=== PATIENT | female | born 1950 | race Caucasian/White ===

== ENCOUNTER 2017-07-14 12:09 | Inpatient (IN) | payer MEDICARE, MEDICAID ==
[2017-07-14] MEDS ORDERED: Sodium Chloride 0.9% 10 ML Syringe FLUSH PRN (12:25)
[2017-07-14] MEDS ORDERED: Diltiazem 25 MG/5 ML SDV IVPUSH ONE (12:27)
[2017-07-14] MEDS ORDERED: Diltiazem 125 MG in Sodium Chloride 0.9% 100 ML IV SCH (12:30)
[2017-07-14] MEDS: Sodium Chloride 0.9% 1,000 ML IV SCH ×2 (12:40→21:17)
[2017-07-14] MEDS ORDERED: HYDROmorphone 0.5 MG/0.5 ML Syringe IVPUSH ONE (13:08)
[2017-07-14] MEDS ORDERED: HYDROmorphone 1 MG/ML Syringe IVPUSH ONE (15:12)
--- NOTE | 2017-07-14 15:12 | EDM.PDOC ---
ED HPI GENERAL MEDICAL PROBLEM - General Chief Complaint: Cardiovascular Problem Stated Complaint: RACING HEART Time Seen by Provider: 07/14/17 12:20 Source of Information: Reports: Patient History Limitations: Reports: No Limitations - History of Present Illness INITIAL COMMENTS - FREE TEXT/NARRATIVE: The patient presents from Dr Gorman's office. She was found to be in A-fib with RVR. She did not realize she was in the A-fib. She denies chest pain. She is short of breath at times. She has no nausea or vomiting. She has no abdominal pain. She has pain in her left leg. She has had trouble with edema for awhile and she said she had some areas to the left leg that opened up and they got infected. She has been on keflex for about 1 week for this and it has not gotten any better. She was seeing Dr Gorman today for the first time for an internal medicine consult. She has type II diabetes that she takes metformin for. Onset: Gradual Duration: Week(s): Location: Reports: Lower Extremity, Left Quality: Reports: Sharp Severity: Severe Improves with: Reports: Immobilization Worsens with: Reports: Movement Associated Symptoms: Reports: Shortness of Breath. Denies: Chest Pain, Fever/ Chills, Headaches, Nausea/Vomiting Left Lower Leg Pain Score (Numeric/FACES): 10 - Related Data Allergies Allergy/AdvReac Type Severity Reaction Status Date / Time peanut Allergy Airway Verified 07/14/17 12:20 Tightness Sulfa (Sulfonamide AdvReac Vomiting Verified 07/14/17 12:43 Antibiotics) steroids Allergy Swelling Uncoded 07/14/17 12:20 Home Meds: Home Meds Cephalexin 500 mg PO TID 07/14/17 [History] Docusate Sodium [Colace] 100 mg PO BID 07/14/17 [History] Furosemide [Lasix] 20 mg PO DAILY 07/14/17 [History] Hydrocodone/Acetaminophen [Hydrocodon-Acetaminophen 5-325] 1 tab PO Q6H PRN [History] Ibuprofen 600 mg PO TID PRN 07/14/17 [History] Levothyroxine [Levothroid] 137 mcg PO DAILY 07/14/17 [History] Lisinopril 40 mg PO DAILY 07/14/17 [History] Omeprazole 40 mg PO DAILY 07/14/17 [History] Potassium Chloride [Klor-Con 10] 10 meq PO DAILY 07/14/17 [History] Solifenacin [Vesicare] 5 mg PO DAILY 07/14/17 [History] atorvaSTATin [Lipitor] 40 mg PO BEDTIME 07/14/17 [History] metFORMIN [Glucophage] 500 mg PO BIDMEALS 07/14/17 [History] Past Medical History Respiratory History: Reports: Asthma, Sleep Apnea, SOB Musculoskeletal History: Reports: Arthritis Endocrine/Metabolic History: Reports: Diabetes, Type II - Past Surgical History GI Surgical History: Reports: Appendectomy, Cholecystectomy, Colonoscopy Female Surgical History: Reports: Hysterectomy Social & Family History - Tobacco Use Smoking Status *Q: Former Smoker Used Tobacco, but Quit: No ED ROS GENERAL - Review of Systems Review Of Systems: See Below Constitutional: Reports: No Symptoms HEENT: Reports: No Symptoms Respiratory: Reports: Shortness of Breath Cardiovascular: Reports: No Symptoms Endocrine: Reports: No Symptoms GI/Abdominal: Reports: No Symptoms : Reports: No Symptoms Musculoskeletal: Reports: Other (Left leg pain and edema) ED EXAM, GENERAL - Physical Exam Exam: See Below Exam Limited By: No Limitations General Appearance: Alert, No Apparent Distress Ears: Normal External Exam Nose: Normal Inspection Head: Atraumatic, Normocephalic Neck: Normal Inspection Respiratory/Chest: No Respiratory Distress, Lungs Clear, Normal Breath Sounds Cardiovascular: No Murmur, Irregularly Irregular, Other (Edema to both legs and erythema to the left leg. Good sensation and pulses distally.) GI/Abdominal: Soft, Non-Tender, No Organomegaly, No Mass Back Exam: Normal Inspection Extremities: Other (Left and right leg have moderate edema. The left leg has 3 sores with erythema. Good sensation and pulses distally.) Course - Vital Signs Last Recorded V/S: Last Vital Signs Temp 97.4 F 07/14/17 12:20 Pulse 86 07/14/17 15:21 Resp 18 07/14/17 15:21 BP 129/64 07/14/17 15:21 Pulse Ox 98 07/14/17 15:21 - Orders/Labs/Meds Orders: Active Orders 24 hr Category Date Time Status Cardiac Monitoring [RC] . DIRECTED Care 07/14/17 12:25 Active Oxygen Therapy [RC] PRN Care 07/14/17 12:26 Active Peripheral IV Care [RC] . DIRECTED Care 07/14/17 12:27 Active Chest 1V Frontal [CR] Stat Exams 07/14/17 12:27 Taken CULTURE BLOOD [BC] Stat Lab 07/14/17 12:58 Received CULTURE BLOOD [BC] Stat Lab 07/14/17 13:15 Received Diltiazem 125 mg Med 07/14/17 12:30 Active Sodium Chloride 0.9% [Normal Saline] 100 ml IV TITRATE Sodium Chloride 0.9% [Normal Saline] 1,000 ml Med 07/14/17 12:30 Active IV ASDIRECTED Sodium Chloride 0.9% [Saline Flush] Med 07/14/17 12:25 Active 10 ml FLUSH ASDIRECTED PRN Blood Culture x2 Reflex Set [OM.PC] Stat Oth 07/14/17 12:27 Ordered Peripheral IV Insertion Adult [OM.PC] Stat Oth 07/14/17 12:25 Ordered Medication Orders Diltiazem HCl 125 mg/ Sodium (Chloride) 125 mls @ 10 mls/hr IV TITRATE HARESH; 10 MG/HR PRN Reason: Protocol Last Admin: 07/14/17 13:19 Dose: 10 mg/hr, 10 mls/hr Sodium Chloride (Normal Saline) 1,000 mls @ 125 mls/hr IV ASDIRECTED HARESH Last Admin: 07/14/17 12:40 Dose: 125 mls/hr Sodium Chloride (Saline Flush) 10 ml FLUSH ASDIRECTED PRN PRN Reason: Keep Vein Open Last Admin: 07/14/17 12:44 Dose: 10 ml Labs: Laboratory Tests 07/14/17 07/14/17 07/14/17 Range/Units 12:20 12:20 12:20 WBC 11.15 H (3.98-10.04) K/mm3 RBC 3.93 L (3.98-5.22) M/mm3 Hgb 10.8 L (11.2-15.7) gm/L Hct 33.1 L (34.1-44.9) % MCV 84.2 (79.4-94.8) fl MCH 27.5 (25.6-32.2) pg MCHC 32.6 (32.2-35.5) g/dl RDW Std Deviation 42.4 (36.4-46.3) fL Plt Count 357 (182-369) K/mm3 MPV 9.2 L (9.4-12.3) fl Neut % (Auto) 75.7 H (34.0-71.1) % Lymph % (Auto) 12.4 L (19.3-51.7) % [place] % (Auto) 7.6 (4.7-12.5) % Eos % (Auto) 3.6 (0.7-5.8) Baso % (Auto) 0.4 (0.1-1.2) % Neut # (Auto) 8.45 H (1.56-6.13) K/mm3 Lymph # (Auto) 1.38 (1.18-3.74) K/mm3 [place] # (Auto) 0.85 H (0.24-0.36) K/mm3 Eos # (Auto) 0.40 H (0.04-0.36) K/mm3 Baso # (Auto) 0.04 (0.01-0.08) K/mm3 Sodium 137 (136-145) mEq/L Potassium 4.2 (3.5-5.1) mEq/L Chloride 103 (98-107) mEq/L Carbon Dioxide 23 (21-32) mEq/L Anion Gap 15.2 H (5-15) BUN 17 (7-18) mg/dL Creatinine 0.9 (0.55-1.02) mg/dL Est Cr Clr Drug Dosing 44.76 mL/min Estimated GFR (MDRD) > 60 (>60) mL/min BUN/Creatinine Ratio 18.9 H (14-18) Glucose 159 H (80-115) mg/dL Hemoglobin A1c 7.20 H (4.50-6.20) % Calcium 9.4 (8.5-10.1) mg/dL Total Bilirubin 0.3 (0.2-1.0) mg/dL AST 19 (15-37) U/L ALT 26 (14-59) U/L Alkaline Phosphatase 136 H (46-116) U/L Troponin I < 0.017 (0.00-0.056) ng/mL NT-Pro-B Natriuret Pep (0-125) pg/mL Total Protein 8.3 H (6.4-8.2) g/dl Albumin 3.3 L (3.4-5.0) g/dl Globulin 5.0 gm/dL Albumin/Globulin Ratio 0.7 L (1-2) 07/14/17 Range/Units 12:20 WBC (3.98-10.04) K/mm3 RBC (3.98-5.22) M/mm3 Hgb (11.2-15.7) gm/L Hct (34.1-44.9) % MCV (79.4-94.8) fl MCH (25.6-32.2) pg MCHC (32.2-35.5) g/dl RDW Std Deviation (36.4-46.3) fL Plt Count (182-369) K/mm3 MPV (9.4-12.3) fl Neut % (Auto) (34.0-71.1) % Lymph % (Auto) (19.3-51.7) % [place] % (Auto) (4.7-12.5) % Eos % (Auto) (0.7-5.8) Baso % (Auto) (0.1-1.2) % Neut # (Auto) (1.56-6.13) K/mm3 Lymph # (Auto) (1.18-3.74) K/mm3 [place] # (Auto) (0.24-0.36) K/mm3 Eos # (Auto) (0.04-0.36) K/mm3 Baso # (Auto) (0.01-0.08) K/mm3 Sodium (136-145) mEq/L Potassium (3.5-5.1) mEq/L Chloride (98-107) mEq/L Carbon Dioxide (21-32) mEq/L Anion Gap (5-15) BUN (7-18) mg/dL Creatinine (0.55-1.02) mg/dL Est Cr Clr Drug Dosing mL/min Estimated GFR (MDRD) (>60) mL/min BUN/Creatinine Ratio (14-18) Glucose (80-115) mg/dL Hemoglobin A1c (4.50-6.20) % Calcium (8.5-10.1) mg/dL Total Bilirubin (0.2-1.0) mg/dL AST (15-37) U/L ALT (14-59) U/L Alkaline Phosphatase (46-116) U/L Troponin I (0.00-0.056) ng/mL NT-Pro-B Natriuret Pep 608 H (0-125) pg/mL Total Protein (6.4-8.2) g/dl Albumin (3.4-5.0) g/dl Globulin gm/dL Albumin/Globulin Ratio (1-2) Meds: Medications Generic Name Dose Route Start Last Admin Trade Name Louise PRN Reason Stop Dose Admin Diltiazem HCl 125 mg/ Sodium 125 mls @ 10 mls/hr 07/14/17 12:30 07/14/17 13: 19 Chloride IV 10 mg/hr TITRATE HARESH 10 mls/hr Protocol Administration 10 MG/HR Sodium Chloride 1,000 mls @ 125 mls/hr 07/14/17 12:30 07/14/17 12:40 Normal Saline IV 125 mls/hr ASDIRECTED HARESH Administration Sodium Chloride 10 ml 07/14/17 12:25 07/14/17 12:44 Saline Flush FLUSH 10 ml ASDIRECTED PRN Administration Keep Vein Open Discontinued Medications Generic Name Dose Route Start Last Admin Trade Name Louise PRN Reason Stop Dose Admin Diltiazem HCl 10 mg 07/14/17 12:27 07/14/17 12:43 Diltiazem IVPUSH 07/14/17 12:28 10 mg ONETIME ONE Administration Hydromorphone HCl 0.5 mg 07/14/17 13:08 07/14/17 13:25 Dilaudid IVPUSH 07/14/17 13:09 0.5 mg ONETIME ONE Administration Hydromorphone HCl 1 mg 07/14/17 15:12 07/14/17 15:20 Dilaudid IVPUSH 07/14/17 15:13 1 mg ONETIME ONE Administration - Re-Assessments/Exams Free Text/Narrative Re-Assessment/Exam: 07/14/17 15:49 I ordered an IV saline lock, CXR, labs, blood cultures, cardizem bolus and a cardizem drip. Her EKG from the clinic shows A-fib with no acute changes. Her CXR looks good. Her WBC was elevated at 11.15. Her Hgb was low at 10.8. Her anion gap was elevated at 15.2. Her glucose was elevated at 159 with an elevated Hgb A1C 7.2. Her Alk phose was elevated at 130. Her troponin was negative. Her BNP was elevated at 608. I ordered vancomycin 2 grams IV for her left leg cellulitis. I am worried this may be a resistant bug because she failed outpatient therapy. Her blood pressure did drop after the bolus of cardizem and the drip. I stopped the drip. I feel she needs to be admitted. I called Dr Tarango and she agreed to the admission. It appears the patient has converted. I have ordered a repeat EKG. Departure - Departure Time of Disposition: 16:00 Disposition: Admitted As Inpatient 67 Condition: Serious Clinical Impression: Atrial fibrillation with RVR, Cellulitis of left leg Referrals: Suzi Solares, [employer] [Primary Care Provider] - Forms: ED Department Discharge - My Orders Last 24 Hours: My Active Orders 07/14/17 12:25 Cardiac Monitoring [RC] . DIRECTED Sodium Chloride 0.9% [Saline Flush] 10 ml FLUSH ASDIRECTED PRN Peripheral IV Insertion Adult [OM.PC] Stat 07/14/17 12:26 Oxygen Therapy [RC] PRN 07/14/17 12:27 Peripheral IV Care [RC] . DIRECTED Chest 1V Frontal [CR] Stat Blood Culture x2 Reflex Set [OM.PC] Stat 07/14/17 12:30 Diltiazem 125 mg Sodium Chloride 0.9% [Normal Saline] 100 ml IV TITRATE Sodium Chloride 0.9% [Normal Saline] 1,000 ml IV ASDIRECTED 07/14/17 12:58 CULTURE BLOOD [BC] Stat 07/14/17 13:15 CULTURE BLOOD [BC] Stat - Assessment/Plan Last 24 Hours: My Active Orders 07/14/17 12:25 Cardiac Monitoring [RC] . DIRECTED Sodium Chloride 0.9% [Saline Flush] 10 ml FLUSH ASDIRECTED PRN Peripheral IV Insertion Adult [OM.PC] Stat 07/14/17 12:26 Oxygen Therapy [RC] PRN 07/14/17 12:27 Peripheral IV Care [RC] . DIRECTED Chest 1V Frontal [CR] Stat Blood Culture x2 Reflex Set [OM.PC] Stat 07/14/17 12:30 Diltiazem 125 mg Sodium Chloride 0.9% [Normal Saline] 100 ml IV TITRATE Sodium Chloride 0.9% [Normal Saline] 1,000 ml IV ASDIRECTED 07/14/17 12:58 CULTURE BLOOD [BC] Stat 07/14/17 13:15 CULTURE BLOOD [BC] Stat
[2017-07-14] MEDS ORDERED: Polyethylene Glycol 3350 Powder 17 GM Packet PO PRN (17:04)
[2017-07-14] MEDS ORDERED: Docusate Sodium 100 MG Cap PO PRN (17:04)
[2017-07-14] MEDS ORDERED: Ondansetron 4 MG/2 ML SDV IV PRN (17:04)
[2017-07-14] MEDS: Acetaminophen/HYDROcodone 325-5 MG Tab PO PRN ×2 (17:42→21:42)
[2017-07-14] MEDS: Enoxaparin 40 MG/0.4 ML Syringe SUBCUT SCH (17:44)
[2017-07-14] MEDS ORDERED: Vancomycin 2 GM in Sodium Chloride 0.9% 500 ML IV ONE (18:00)
[2017-07-14] MEDS ORDERED: Piperacillin/Tazobactam 4.5 GM in Sodium Chloride 0.9% 100 ML IV ONE (18:00)
--- NOTE | 2017-07-14 18:34 | PCM.HP ---
H&P History of Present Illness - General Date of Service: 07/14/17 Admit Problem/Dx: Admission Diagnosis/Problem Admission Diagnosis/Problem Atrial fibrillation, currently in sinus rhythm Source of Information: Patient, Old Records, Provider, RN, RN Notes Reviewed, Significant Other History Limitations: Reports: No Limitations - History of Present Illness Initial Comments - Free Text/Narative: Nissa Roach is a 66 yo female who presented to our ED today from Dr. Gorman's office. She went in there to have her left leg looked at, as she has had pain, swelling, and drainage. While there she was found to be in A. fib with RVR. She is a history of this, denies any chest pain, and do not really she was in an irregular rhythm. She hasn't short of breath at times. Denies nausea, vomiting, abdominal pain. She does report pain in her left leg. She has had edema for some time and was prescribed Lasix for this. She reports recently her left leg opened up and began weeping. This since become infected. She was reportedly on Keflex for one week and denies any improvement. She has type II DM and is on metformin, however no insulin. Labs were obtained: 30 mL slightly elevated left 0.15, hemoglobin is low at 10.8. Hematocrit low 33.1. She was normocytic. Platelet count 357,000. Neutrophils are elevated at 75.7%. Sodium was normal at 137. Potassium 4.2. Chloride 103. Anion gap is elevated at 15.2. BUN on the high end of normal at 17. Creatinine 0.9. EGFR greater than 60. Glucose 159. Hemoglobin A1c 7.20. Calcium 9.4. Total bilirubin 0.3. AST is 19, ALT 26, alkaline phosphatase 136. Troponin is negative with less than 0.017. ProBNP is 608. Albumin is low at 3.3. She was given 10 mg IVP of Cardizem and started on a Cardizem drip. Shortly after starting the Cardizem drip and her blood pressure dropped and the drip was stopped. She also complaining of leg pain and was given Dilaudid. EKG was obtained showing A. fib with no acute changes. This is per ED provider interpretation. CXR also reportedly looked good. The patient self converted back to normal sinus rhythm before being admitted. Blood cultures were obtained. She carries a history of asthma, YONAS although not on a CPAP as hers broke and she is waiting for a new one once insurance allows next year, arthritis, type II DM, morbid obesity. She is a former smoker. She is a full code. Her PCP is Sriram Solares, nurse practitioner at [facility]. She reports she had been instructed to see Dr. Gorman for internal medicine. Left Lower Leg Pain Score (Numeric/FACES): 10 - Related Data Allergies/Adverse Reactions: Allergies Allergy/AdvReac Type Severity Reaction Status Date / Time peanut Allergy Airway Verified 07/14/17 12:20 Tightness Sulfa (Sulfonamide AdvReac Vomiting Verified 07/14/17 12:43 Antibiotics) paper tape Allergy Blisters Uncoded 07/14/17 17:40 steroids Allergy Swelling Uncoded 07/14/17 12:20 Home Medications: Home Meds Cephalexin 500 mg PO TID 07/14/17 [History] Docusate Sodium [Colace] 100 mg PO BID 07/14/17 [History] Furosemide [Lasix] 20 mg PO DAILY 07/14/17 [History] Hydrocodone/Acetaminophen [Hydrocodon-Acetaminophen 5-325] 1 tab PO Q6H PRN [History] Ibuprofen 600 mg PO TID PRN 07/14/17 [History] Levothyroxine [Levothroid] 137 mcg PO DAILY 07/14/17 [History] Lisinopril 40 mg PO DAILY 07/14/17 [History] Omeprazole 40 mg PO DAILY 07/14/17 [History] Potassium Chloride [Klor-Con 10] 10 meq PO DAILY 07/14/17 [History] Solifenacin [Vesicare] 5 mg PO DAILY 07/14/17 [History] atorvaSTATin [Lipitor] 40 mg PO BEDTIME 07/14/17 [History] metFORMIN [Glucophage] 500 mg PO BIDMEALS 07/14/17 [History] Past Medical History Respiratory History: Reports: Asthma, Sleep Apnea, SOB Musculoskeletal History: Reports: Arthritis Endocrine/Metabolic History: Reports: Diabetes, Type II Oncologic (Cancer) History: Reports: Breast - Past Surgical History GI Surgical History: Reports: Appendectomy, Cholecystectomy, Colonoscopy Female Surgical History: Reports: Hysterectomy, Oophorectomy Social & Family History - Tobacco Use Smoking Status *Q: Former Smoker Used Tobacco, but Quit: Yes Month Tobacco Last Used: 1990 - Caffeine Use Caffeine Use: Reports: Coffee, Soda, Tea - Recreational Drug Use Recreational Drug Use: No H&P Review of Systems - Review of Systems: Review Of Systems: See Below General: Reports: No Symptoms. Denies: Fever, Chills, Malaise, Weakness, Fatigue HEENT: Reports: No Symptoms. Denies: Contact Lenses, Dysphasia, Ear Pain, Eye Pain, Headaches Pulmonary: Reports: No Symptoms. Denies: Shortness of Breath, Wheezing, Cough, Sputum Cardiovascular: Reports: Dyspnea on Exertion, Orthopnea, Edema. Denies: Chest Pain, Palpitations Gastrointestinal: Reports: Nausea, Vomiting. Denies: Abdominal Pain, Constipation, Diarrhea Genitourinary: Reports: Frequency (On Lasix). Denies: Dysuria, Burning, Pain, Urgency Musculoskeletal: Reports: Back Pain (Chronic), Leg Pain (Left). Denies: Neck Pain, Shoulder Pain, Arm Pain, Hand Pain, Foot Pain, Joint Pain, Joint Swelling , Muscle Pain, Muscle Stiffness Skin: Reports: Erythema (Left leg), Wound (Left leg). Denies: Cyanosis, Jaundice, Mottled, Pallor, Diaphoresis Psychiatric: Reports: No Symptoms. Denies: Confusion, Depression, Mood Lability , Anxiety, Agitation Neurological: Reports: No Symptoms. Denies: Confusion, Dizziness, Headache, Numbness, Pre-Existing Deficit, Trouble Speaking Hematologic/Lymphatic: Reports: No Symptoms Immunologic: Reports: No Symptoms Review of Systems Comment:: Patient reports she was told to sleep in a chair since she does not have a working CPAP machine at home. Exam - Exam Exam: See Below - Vital Signs Vital Signs: Last Vital Signs Temp 98.1 F 07/14/17 16:20 Pulse 83 07/14/17 16:20 Resp 18 07/14/17 16:20 BP 104/81 07/14/17 16:20 Pulse Ox 92 L 07/14/17 16:20 Weight: 255 lb 1.6 oz - Exam Quality Assessment: DVT Prophylaxis General: Alert, Oriented, Cooperative HEENT: Conjunctiva Clear, EACs Clear, EOMI, Hearing Intact, Mucosa Moist & Wanda , Nares Patent, Normal Nasal Septum, Posterior Pharynx Clear, PERRLA Neck: Supple, Trachea Midline. No: JVD, Thyromegaly Lungs: Clear to Auscultation, Normal Respiratory Effort Cardiovascular: Regular Rate, Regular Rhythm GI/Abdominal Exam: Normal Bowel Sounds, Soft, Non-Tender, No Organomegaly, No Distention, No Abnormal Bruit, No Mass, Pelvis Stable (Female) Exam: Deferred Rectal (Female) Exam: Deferred Back Exam: Normal Inspection, Decreased Range of Motion, Vertebral Tenderness ( Chronic lower back pain) Extremities: Normal Capillary Refill, Pedal Edema (2+), Limited Range of Motion , Increased Warmth (Left leg), Redness (Left leg), Other (Wounds to left lower leg that are crusted over, left leg is very tender per patient) Peripheral Pulses: 1+: Radial (L), Radial (R), Posterior Tibial (L), Posterior Tibial (R), Dorsalis Pedis (L), Dorsalis Pedis (R) Skin: Warm, Dry, Intact, Wound (Left leg per above) Neurological: Cranial Nerves Intact (Grossly) Neuro Extensive - Mental Status: Alert, Oriented x3, Memory Intact Neuro Extensive - Motor, Sensory, Reflexes: CN II-XII Intact (Grossly) Psychiatric: Alert, Normal Mood - Patient Data Result Diagrams: 07/14/17 12:20 07/14/17 12:20 *Q Meaningful Use (ADM) - VTE *Q VTE Criteria *Q: - Stroke *Q Stroke Criteria *Q: - AMI *Q AMI Criteria *Q: - Problem List (1) Atrial fibrillation with RVR SNOMED Code(s): 128764219533429 ICD Code: I48.91 - UNSPECIFIED ATRIAL FIBRILLATION Status: Resolved Priority: High Current Visit: Yes (2) Cellulitis of left leg SNOMED Code(s): 935855307 ICD Code: L03.116 - CELLULITIS OF LEFT LOWER LIMB Status: Acute Priority : High Current Visit: Yes (3) YONAS (obstructive sleep apnea) SNOMED Code(s): 21981675 ICD Code: G47.33 - OBSTRUCTIVE SLEEP APNEA (ADULT) (PEDIATRIC) Status: Chronic Priority: Low Current Visit: Yes (4) Asthma SNOMED Code(s): 425076955 ICD Code: J45.909 - UNSPECIFIED ASTHMA, UNCOMPLICATED Status: Chronic Priority: Low Current Visit: Yes Qualifiers: Asthma severity: unspecified severity Asthma persistence: unspecified Asthma complication type: unspecified Qualified Code(s): J45.909 - Unspecified asthma, uncomplicated (5) Type II diabetes mellitus SNOMED Code(s): 21207753 ICD Code: E11.9 - TYPE 2 DIABETES MELLITUS WITHOUT COMPLICATIONS Status: Chronic Priority: Medium Current Visit: Yes Qualifiers: Diabetes mellitus complication status: with unspecified complications Diabetes mellitus terminal clerk insulin use: without terminal clerk use Qualified Code( s): E11.8 - Type 2 diabetes mellitus with unspecified complications (6) Morbid obesity with BMI of 50.0-59.9, adult SNOMED Code(s): 302495382 ICD Code: E66.01 - MORBID (SEVERE) OBESITY DUE TO EXCESS CALORIES; Z68.43 - BODY MASS INDEX (BMI) 50-59.9 , ADULT Status: Chronic Priority: Medium Current Visit: Yes Problem List Initiated/Reviewed/Updated: Yes Orders Last 24hrs: Active Orders 24 hr Category Date Time Status Ambulate [RC] ASDIRECTED Care 07/14/17 17:04 Active Ambulate [RC] PER UNIT ROUTINE Care 07/14/17 17:07 Active Blood Glucose Check, Bedside [RC] BIDMEALS Care 07/14/17 17:04 Active Height and Weight [RC] DAILY Care 07/14/17 17:04 Active Intake and Output [RC] QSHIFT Care 07/14/17 17:07 Active Pulse Oximetry [RC] PRN Care 07/14/17 17:07 Active RT Aerosol Therapy [RC] ASDIRECTED Care 07/14/17 17:09 Active Up With Assistance [RC] ASDIRECTED Care 07/14/17 17:04 Active VTE/DVT Education [RC] Care 07/14/17 17:04 Active Vital Signs [RC] Q4H Care 07/14/17 17:04 Active Consult to Case Management [CONS] Routine Cons 07/14/17 17:04 Active Consult to Diabetic Nurse Specialist [CONS] Routine Cons 07/14/17 17:12 Active Consult to Compliance Attorney [CONS] Routine Cons 07/14/17 17:04 Active Consult to Director Child Abuse Therapy [CONS] Routine Cons 07/14/17 17:04 Active OT Evaluation and Treatment [CONS] Routine Cons 07/14/17 17:04 Active PT Evaluation and Treatment [CONS] Routine Cons 07/14/17 17:04 Active [place] Diet [DIET] Diet 07/15/17 Breakfast Ordered BASIC METABOLIC PANEL,BMP [CHEM] AM Lab 07/15/17 05:11 Ordered BASIC METABOLIC PANEL,BMP [CHEM] AM Lab 07/16/17 05:11 Ordered BASIC METABOLIC PANEL,BMP [CHEM] AM Lab 07/17/17 05:11 Ordered BASIC METABOLIC PANEL,BMP [CHEM] AM Lab 07/18/17 05:11 Ordered CBC WITH AUTO DIFF [HEME] AM Lab 07/15/17 05:11 Ordered CBC WITH AUTO DIFF [HEME] AM Lab 07/16/17 05:11 Ordered CBC WITH AUTO DIFF [HEME] AM Lab 07/17/17 05:11 Ordered CBC WITH AUTO DIFF [HEME] AM Lab 07/18/17 05:11 Ordered CRP [C-REACTIVE PROTEIN] [CHEM] AM Lab 07/15/17 05:11 Ordered CRP [C-REACTIVE PROTEIN] [CHEM] AM Lab 07/16/17 05:11 Ordered CRP [C-REACTIVE PROTEIN] [CHEM] AM Lab 07/17/17 05:11 Ordered CRP [C-REACTIVE PROTEIN] [CHEM] AM Lab 07/18/17 05:11 Ordered MAGNESIUM [CHEM] AM Lab 07/15/17 05:11 Ordered MAGNESIUM [CHEM] AM Lab 07/16/17 05:11 Ordered MAGNESIUM [CHEM] AM Lab 07/17/17 05:11 Ordered MAGNESIUM [CHEM] AM Lab 07/18/17 05:11 Ordered VANCOMYCIN TROUGH [CHEM] Timed Lab 07/18/17 14:00 Ordered Acetaminophen/HYDROcodone [[place] 325-5 MG] Med 07/14/17 17:04 Active 1 tab PO Q4H PRN Albuterol/Ipratropium [DuoNeb 3.0-0.5 MG/3 ML] Med 07/14/17 17:04 Active 3 ml NEB Q4H PRN Bisacodyl [Dulcolax] Med 07/14/17 17:04 Active 5 mg PO DAILY PRN Docusate Sodium [Colace] Med 07/14/17 17:04 Active 100 mg PO BID PRN Docusate Sodium/Sennosides [Senna Plus] Med 07/14/17 17:04 Active 1 tab PO BID PRN Enoxaparin [Lovenox] Med 07/14/17 18:00 Active 40 mg SUBCUT Q24H HYDROmorphone [Dilaudid] Med 07/14/17 17:04 Active 0.5 mg IVPUSH Q2H PRN Ibuprofen [Motrin] Med 07/14/17 17:04 Active 600 mg PO Q6H PRN Ondansetron [Zofran ODT] Med 07/14/17 17:04 Active 4 mg PO Q6H PRN Ondansetron [Zofran] Med 07/14/17 17:04 Active 4 mg IV Q6H PRN Piperacillin/Tazobactam [Zosyn] 4.5 gm Med 07/14/17 18:00 Active Sodium Chloride 0.9% [Normal Saline] 100 ml IV ONETIME Piperacillin/Tazobactam [Zosyn] 4.5 gm Med 07/14/17 17:45 Ordered Sodium Chloride 0.9% [Normal Saline] 100 ml IV Q8H Polyethylene Glycol 3350 [MiraLAX] Med 07/14/17 17:04 Active 17 gm PO DAILY PRN Vancomycin 2 gm Med 07/14/17 18:00 Active Sodium Chloride 0.9% [Normal Saline] 500 ml IV ONETIME Vancomycin Pharmacy to Dose [Pharmacy to Dose - Med 07/14/17 17:45 Ordered Vancomycin] 1 dose .XX ASDIRECTED Vancomycin [Vancocin] 1 gm Med 07/15/17 15:00 Active Sodium Chloride 0.9% [Normal Saline] 250 ml IV Q24H Resuscitation Status Routine Resus Stat 07/14/17 17:04 Ordered Medication Orders Hydrocodone Bitart/Acetaminophen ([place] 325-5 Mg) 1 tab PO Q4H PRN PRN Reason: Pain (moderate 4-6) Last Admin: 07/14/17 17:42 Dose: 1 tab Albuterol/Ipratropium (Duoneb 3.0-0.5 Mg/3 Ml) 3 ml NEB Q4H PRN PRN Reason: Shortness Of Breath/wheezing Bisacodyl (Dulcolax) 5 mg PO DAILY PRN PRN Reason: Constipation Docusate Sodium (Colace) 100 mg PO BID PRN PRN Reason: Constipation Enoxaparin Sodium (Lovenox) 40 mg SUBCUT Q24H HARESH Last Admin: 07/14/17 17:44 Dose: 40 mg Hydromorphone HCl (Dilaudid) 0.5 mg IVPUSH Q2H PRN PRN Reason: Pain (severe 7-10) Diltiazem HCl 125 mg/ Sodium (Chloride) 125 mls @ 10 mls/hr IV TITRATE HARESH; 10 MG/HR PRN Reason: Protocol Last Titration: 07/14/17 16:10 Dose: 0 mg/hr, 0 mls/hr Titration: 07/14/17 14:06 Dose: 0 mg/hr, 0 mls/hr Admin: 07/14/17 13:19 Dose: 10 mg/hr, 10 mls/hr Sodium Chloride (Normal Saline) 1,000 mls @ 125 mls/hr IV ASDIRECTED HARESH Last Admin: 07/14/17 12:40 Dose: 125 mls/hr Vancomycin HCl 2 gm/ Sodium (Chloride) 500 mls @ 333 mls/hr IV ONETIME ONE Stop: 07/14/17 19:30 Piperacillin Sod/Tazobactam (Sod 4.5 gm/ Sodium Chloride) 100 mls @ 25 mls/hr IV Q8H HARESH Piperacillin Sod/Tazobactam (Sod 4.5 gm/ Sodium Chloride) 100 mls @ 200 mls/hr IV ONETIME ONE Stop: 07/14/17 18:29 Last Admin: 07/14/17 18:08 Dose: 200 mls/hr Vancomycin HCl 1 gm/ Sodium (Chloride) 250 mls @ 250 mls/hr IV Q24H HARESH Ibuprofen (Motrin) 600 mg PO Q6H PRN PRN Reason: Pain (moderate 4-6) Ondansetron HCl (Zofran Odt) 4 mg PO Q6H PRN PRN Reason: nausea, able to take PO Ondansetron HCl (Zofran) 4 mg IV Q6H PRN PRN Reason: Nausea/Vomiting Last Admin: 07/14/17 17:34 Dose: 4 mg Polyethylene Glycol (Miralax) 17 gm PO DAILY PRN PRN Reason: Constipation Senna/Docusate Sodium (Senna Plus) 1 tab PO BID PRN PRN Reason: Constipation Sodium Chloride (Saline Flush) 10 ml FLUSH ASDIRECTED PRN PRN Reason: Keep Vein Open Last Admin: 07/14/17 12:44 Dose: 10 ml Vancomycin HCl (Pharmacy To Dose - Vancomycin) 1 dose .XX ASDIRECTED [facility] Assessment/Plan Comment:: I/P: Acute: A-Fib with RVR -Noted in Dr. Gorman's office and on arrival to ED -Cardizem drip started, however pts. BP lowered so drip was stopped, patient self converted a short time later -12 lead EKG obtained during A-fib episode and after, with NSR noted recently -No hx/o ME, A-Fib, or electrolyte abnormalities -Potassium 4.2 -Magnesium ordered -Trop negative -TSH 2.630 -Telemetry - will hold off cardizem for now as patient is still in NSR with no ectopy noted. -Vital signs stable -Continue to monitor Cellulitis of left lower extremity -Erythema, redness, pain, and wound noted on left leg. -Patient reports she has had swelling for some time bilaterally in her legs -She reports left leg recently began to break open and drain. -On Keflex earlier from PCP with no improvement -Reportedly was started on Lasix by PCP prior for pedal edema -Vancomycin and Zosyn ordered -PRN pain meds -PT\OT for discharge planning and wound care -Patient reportedly underwent peripheral vascular studies this past Wednesday at [facility]. Will attempt to obtain records. -Dietitian consult -Patient has multiple risk factors including morbid obesity, diabetes, and pedal edema. -Lipid panel ordered -CRP ordered Chronic Type II DM -On metformin only -Reports she had A1C checked earlier this year and it was 6.1, it is now 7.2 -Diabetic nurse educator -BID blood glucose checks -Sliding scale insulin as infection may influence her blood sugars -ADA diet YONAS but not on CPAP as hers broke and she cannot obtain replacement until next calender year for insurance. Asthma Arthritis Chronic back pain - reports she was supposed to have surgery, however surgeon refused due to her obesity Morbid obesity - BMI 57.2 Plan: Admit to ICU CM/SW for discharge planning PT/OT as above DVT prophylaxis: Lovenox and ambulation GI prophylaxis: Pepcid Other orders as indicated above Home medications as ordered Routine AM labs Code Status: Full code; Her PCP is Suzi Solares at [facility], although she was reportedly told to see Dr. oGrman for internal medicine.
[2017-07-14] MEDS ORDERED: 50% Dextrose in Water 50 ML Syringe IVPUSH PRN (19:00)
[2017-07-14] MEDS: Ibuprofen 600 MG Tab PO PRN (19:14)
[2017-07-14] MEDS: Temazepam 15 MG Cap PO PRN (21:40)
[2017-07-14] MEDS: Insulin Aspart 100 Units/ML 3 ML Pen SUBCUT SCH (21:41)
[2017-07-15] MEDS: HYDROmorphone 1 MG/ML Syringe IVPUSH PRN ×2 (00:02→21:24)
[2017-07-15] MEDS: Piperacillin/Tazobactam 4.5 GM in Sodium Chloride 0.9% 100 ML IV SCH ×3 (01:55→18:25)
[2017-07-15] MEDS: Sodium Chloride 0.9% 1,000 ML IV SCH ×3 (04:42→21:58)
[2017-07-15] MEDS: Acetaminophen/HYDROcodone 325-5 MG Tab PO PRN ×4 (04:42→18:26)
[2017-07-15] MEDS: Insulin Aspart 100 Units/ML 3 ML Pen SUBCUT SCH ×4 (06:30→21:43)
[2017-07-15] MEDS: Ondansetron 4 MG Tab.DIS PO PRN (11:46)
--- NOTE | 2017-07-15 12:22 | PCM.PN ---
- General Info Date of Service: 07/15/17 Functional Status: Reports: Pain Controlled, Tolerating Diet, Ambulating, Urinating - Review of Systems General: Reports: Weakness HEENT: Reports: No Symptoms Pulmonary: Reports: No Symptoms Cardiovascular: Reports: No Symptoms Gastrointestinal: Reports: No Symptoms Genitourinary: Reports: No Symptoms Musculoskeletal: Reports: No Symptoms Skin: Reports: No Symptoms Neurological: Reports: No Symptoms Psychiatric: Reports: No Symptoms - Patient Data Vitals - Most Recent: Last Vital Signs Temp 36.8 C 07/15/17 08:33 Pulse 81 07/15/17 08:33 Resp 21 H 07/15/17 08:33 BP 159/70 H 07/15/17 08:33 Pulse Ox 97 07/15/17 08:33 Weight - Most Recent: 116.074 kg I&O - Last 24 Hours: Intake & Output 07/14/17 07/15/17 07/15/17 22:59 06:59 14:59 Intake Total 1300 4171 Output Total 350 100 Balance 950 4071 Lab Results Last 24 Hours: Laboratory Results - last 24 hr 07/14/17 07/14/17 07/14/17 Range/Units 18:39 19:30 20:58 WBC (3.98-10.04) K/mm3 RBC (3.98-5.22) M/mm3 Hgb (11.2-15.7) gm/L Hct (34.1-44.9) % MCV (79.4-94.8) fl MCH (25.6-32.2) pg MCHC (32.2-35.5) g/dl RDW Std Deviation (36.4-46.3) fL Plt Count (182-369) K/mm3 MPV (9.4-12.3) fl Neut % (Auto) (34.0-71.1) % Lymph % (Auto) (19.3-51.7) % Mcminn % (Auto) (4.7-12.5) % Eos % (Auto) (0.7-5.8) Baso % (Auto) (0.1-1.2) % Neut # (Auto) (1.56-6.13) K/mm3 Lymph # (Auto) (1.18-3.74) K/mm3 Mcminn # (Auto) (0.24-0.36) K/mm3 Eos # (Auto) (0.04-0.36) K/mm3 Baso # (Auto) (0.01-0.08) K/mm3 Sodium (136-145) mEq/L Potassium (3.5-5.1) mEq/L Chloride (98-107) mEq/L Carbon Dioxide (21-32) mEq/L Anion Gap (5-15) BUN (7-18) mg/dL Creatinine (0.55-1.02) mg/dL Est Cr Clr Drug Dosing mL/min Estimated GFR (MDRD) (>60) mL/min BUN/Creatinine Ratio (14-18) Glucose (80-115) mg/dL POC Glucose 153 H 163 H (80-115) mg/dL Calcium (8.5-10.1) mg/dL Magnesium (1.8-2.4) mg/dl Ferritin (8-252) ng/ml C-Reactive Protein (<1.0) mg/dL Triglycerides (<150) mg/dL Cholesterol (<200) mg/dL LDL Cholesterol Direct (<100) mg/dL HDL Cholesterol (40-59) mg/dL Urine Color Yellow (Yellow) Urine Appearance Clear (Clear) Urine pH 6.0 (5.0-8.0) Ur Specific [place] > or = 1.030 (1.005-1.030) Urine Protein 2+ H (Negative) Urine Glucose (UA) Negative (Negative) Urine Ketones Negative (Negative) Urine Occult Blood 2+ H (Negative) Urine Nitrite Negative (Negative) Urine Bilirubin Negative (Negative) Urine Urobilinogen 0.2 (0.2-1.0) Ur Leukocyte Esterase Negative (Negative) Urine RBC 20-30 H (0-5) /hpf Urine WBC 30-40 H (0-5) /hpf Ur Epithelial Cells 0-5 (0-5) /hpf Amorphous Sediment Few H (NOT SEEN) /hpf Urine Bacteria Moderate H (FEW) /hpf Urine Mucus Many H (FEW) /hpf 07/15/17 07/15/17 07/15/17 Range/Units 06:16 06:17 06:17 WBC 6.19 (3.98-10.04) K/mm3 RBC 3.13 L (3.98-5.22) M/mm3 Hgb 8.6 L (11.2-15.7) gm/L Hct 27.2 L (34.1-44.9) % MCV 86.9 (79.4-94.8) fl MCH 27.5 (25.6-32.2) pg MCHC 31.6 L (32.2-35.5) g/dl RDW Std Deviation 44.0 (36.4-46.3) fL Plt Count 253 (182-369) K/mm3 MPV 9.1 L (9.4-12.3) fl Neut % (Auto) 69.4 (34.0-71.1) % Lymph % (Auto) 17.6 L (19.3-51.7) % Mcminn % (Auto) 10.3 (4.7-12.5) % Eos % (Auto) 2.1 (0.7-5.8) Baso % (Auto) 0.3 (0.1-1.2) % Neut # (Auto) 4.29 (1.56-6.13) K/mm3 Lymph # (Auto) 1.09 L (1.18-3.74) K/mm3 Mcminn # (Auto) 0.64 H (0.24-0.36) K/mm3 Eos # (Auto) 0.13 (0.04-0.36) K/mm3 Baso # (Auto) 0.02 (0.01-0.08) K/mm3 Sodium 135 L (136-145) mEq/L Potassium 4.4 (3.5-5.1) mEq/L Chloride 104 (98-107) mEq/L Carbon Dioxide 23 (21-32) mEq/L Anion Gap 12.4 (5-15) BUN 16 (7-18) mg/dL Creatinine 0.9 (0.55-1.02) mg/dL Est Cr Clr Drug Dosing 44.76 mL/min Estimated GFR (MDRD) > 60 (>60) mL/min BUN/Creatinine Ratio 17.8 (14-18) Glucose 150 H (80-115) mg/dL POC Glucose 146 H (80-115) mg/dL Calcium 8.1 L (8.5-10.1) mg/dL Magnesium 1.9 (1.8-2.4) mg/dl Ferritin (8-252) ng/ml C-Reactive Protein 4.1 H* (<1.0) mg/dL Triglycerides 73 (<150) mg/dL Cholesterol 95 (<200) mg/dL LDL Cholesterol Direct 54 (<100) mg/dL HDL Cholesterol 35.0 L (40-59) mg/dL Urine Color (Yellow) Urine Appearance (Clear) Urine pH (5.0-8.0) Ur Specific [place] (1.005-1.030) Urine Protein (Negative) Urine Glucose (UA) (Negative) Urine Ketones (Negative) Urine Occult Blood (Negative) Urine Nitrite (Negative) Urine Bilirubin (Negative) Urine Urobilinogen (0.2-1.0) Ur Leukocyte Esterase (Negative) Urine RBC (0-5) /hpf Urine WBC (0-5) /hpf Ur Epithelial Cells (0-5) /hpf Amorphous Sediment (NOT SEEN) /hpf Urine Bacteria (FEW) /hpf Urine Mucus (FEW) /hpf 07/15/17 07/15/17 07/15/17 Range/Units 10:45 10:45 11:39 WBC (3.98-10.04) K/mm3 RBC (3.98-5.22) M/mm3 Hgb 8.5 L (11.2-15.7) gm/L Hct (34.1-44.9) % MCV (79.4-94.8) fl MCH (25.6-32.2) pg MCHC (32.2-35.5) g/dl RDW Std Deviation (36.4-46.3) fL Plt Count (182-369) K/mm3 MPV (9.4-12.3) fl Neut % (Auto) (34.0-71.1) % Lymph % (Auto) (19.3-51.7) % Mcminn % (Auto) (4.7-12.5) % Eos % (Auto) (0.7-5.8) Baso % (Auto) (0.1-1.2) % Neut # (Auto) (1.56-6.13) K/mm3 Lymph # (Auto) (1.18-3.74) K/mm3 Mcminn # (Auto) (0.24-0.36) K/mm3 Eos # (Auto) (0.04-0.36) K/mm3 Baso # (Auto) (0.01-0.08) K/mm3 Sodium (136-145) mEq/L Potassium (3.5-5.1) mEq/L Chloride (98-107) mEq/L Carbon Dioxide (21-32) mEq/L Anion Gap (5-15) BUN (7-18) mg/dL Creatinine (0.55-1.02) mg/dL Est Cr Clr Drug Dosing mL/min Estimated GFR (MDRD) (>60) mL/min BUN/Creatinine Ratio (14-18) Glucose (80-115) mg/dL POC Glucose 166 H (80-115) mg/dL Calcium (8.5-10.1) mg/dL Magnesium (1.8-2.4) mg/dl Ferritin 71 (8-252) ng/ml C-Reactive Protein (<1.0) mg/dL Triglycerides (<150) mg/dL Cholesterol (<200) mg/dL LDL Cholesterol Direct (<100) mg/dL HDL Cholesterol (40-59) mg/dL Urine Color (Yellow) Urine Appearance (Clear) Urine pH (5.0-8.0) Ur Specific [place] (1.005-1.030) Urine Protein (Negative) Urine Glucose (UA) (Negative) Urine Ketones (Negative) Urine Occult Blood (Negative) Urine Nitrite (Negative) Urine Bilirubin (Negative) Urine Urobilinogen (0.2-1.0) Ur Leukocyte Esterase (Negative) Urine RBC (0-5) /hpf Urine WBC (0-5) /hpf Ur Epithelial Cells (0-5) /hpf Amorphous Sediment (NOT SEEN) /hpf Urine Bacteria (FEW) /hpf Urine Mucus (FEW) /hpf Med Orders - Current: Current Medications Hydrocodone Bitart/Acetaminophen ([place] 325-5 Mg) 1 tab PO Q4H PRN PRN Reason: Pain (moderate 4-6) Last Admin: 07/15/17 08:48 Dose: 1 tab Albuterol/Ipratropium (Duoneb 3.0-0.5 Mg/3 Ml) 3 ml NEB Q4H PRN PRN Reason: Shortness Of Breath/wheezing Bisacodyl (Dulcolax) 5 mg PO DAILY PRN PRN Reason: Constipation Dextrose/Water (Dextrose 50% In Water) 50 ml IVPUSH ASDIRECTED PRN PRN Reason: Hypoglycemia Docusate Sodium (Colace) 100 mg PO BID PRN PRN Reason: Constipation Enoxaparin Sodium (Lovenox) 40 mg SUBCUT Q24H [facility] Last Admin: 07/14/17 17:44 Dose: 40 mg Hydromorphone HCl (Dilaudid) 0.5 mg IVPUSH Q2H PRN PRN Reason: Pain (severe 7-10) Last Admin: 07/15/17 00:02 Dose: 0.5 mg Sodium Chloride (Normal Saline) 1,000 mls @ 125 mls/hr IV ASDIRECTED [facility] Last Admin: 07/15/17 04:42 Dose: 125 mls/hr Piperacillin Sod/Tazobactam (Sod 4.5 gm/ Sodium Chloride) 100 mls @ 25 mls/hr IV Q8H [facility] Last Admin: 07/15/17 10:27 Dose: 25 mls/hr Vancomycin HCl 1 gm/ Sodium (Chloride) 250 mls @ 250 mls/hr IV Q24H [facility] Ibuprofen (Motrin) 600 mg PO Q6H PRN PRN Reason: Pain (moderate 4-6) Last Admin: 07/14/17 19:14 Dose: 600 mg Insulin Aspart (Novolog) 0 unit SUBCUT QIDACANDBED [facility] PRN Reason: Protocol Last Admin: 07/15/17 11:42 Dose: 1 units Ondansetron HCl (Zofran Odt) 4 mg PO Q6H PRN PRN Reason: nausea, able to take PO Last Admin: 07/15/17 11:46 Dose: 4 mg Ondansetron HCl (Zofran) 4 mg IV Q6H PRN PRN Reason: Nausea/Vomiting Last Admin: 07/14/17 17:34 Dose: 4 mg Polyethylene Glycol (Miralax) 17 gm PO DAILY PRN PRN Reason: Constipation Senna/Docusate Sodium (Senna Plus) 1 tab PO BID PRN PRN Reason: Constipation Sodium Chloride (Saline Flush) 10 ml FLUSH ASDIRECTED PRN PRN Reason: Keep Vein Open Last Admin: 07/14/17 12:44 Dose: 10 ml Temazepam (Restoril) 15 mg PO BEDTIME PRN PRN Reason: Sleep Last Admin: 07/14/17 21:40 Dose: 15 mg Vancomycin HCl (Pharmacy To Dose - Vancomycin) 1 dose .XX ASDIRECTED PRN PRN Reason: RX to Dose Discontinued Medications Diltiazem HCl (Diltiazem) 10 mg IVPUSH ONETIME ONE Stop: 07/14/17 12:28 Last Admin: 07/14/17 12:43 Dose: 10 mg Hydromorphone HCl (Dilaudid) 0.5 mg IVPUSH ONETIME ONE Stop: 07/14/17 13:09 Last Admin: 07/14/17 13:25 Dose: 0.5 mg Hydromorphone HCl (Dilaudid) 1 mg IVPUSH ONETIME ONE Stop: 07/14/17 15:13 Last Admin: 07/14/17 15:20 Dose: 1 mg Diltiazem HCl 125 mg/ Sodium (Chloride) 125 mls @ 10 mls/hr IV TITRATE HARESH; 10 MG/HR PRN Reason: Protocol Last Titration: 07/14/17 16:10 Dose: 0 mg/hr, 0 mls/hr Vancomycin HCl 2 gm/ Sodium (Chloride) 250 mls @ 250 mls/hr IV ONETIME ONE Stop: 07/14/17 16:52 Last Admin: 07/14/17 17:53 Dose: Not Given Vancomycin HCl 2 gm/ Sodium (Chloride) 500 mls @ 333 mls/hr IV ONETIME ONE Stop: 07/14/17 19:30 Last Admin: 07/14/17 18:48 Dose: 333 mls/hr Piperacillin Sod/Tazobactam (Sod 4.5 gm/ Sodium Chloride) 100 mls @ 200 mls/hr IV ONETIME ONE Stop: 07/14/17 18:29 Last Admin: 07/14/17 18:08 Dose: 200 mls/hr - Exam Quality Assessment: DVT Prophylaxis General: Alert, Oriented, Cooperative, No Acute Distress HEENT: Pupils Equal, Pupils Reactive, EOMI Neck: Supple, Trachea Midline, No JVD Lungs: Normal Respiratory Effort Cardiovascular: Regular Rate, Regular Rhythm GI/Abdominal Exam: Normal Bowel Sounds, Soft, Non-Tender, No Organomegaly, No Distention (Female) Exam: Deferred Back Exam: Normal Inspection Extremities: Non-Tender, Pedal Edema, Increased Warmth, Redness Wound/Incisions: Drainage Neurological: No New Focal Deficit, Normal Speech Psy/Mental Status: Alert, Normal Affect, Normal Mood - Problem List Review Problem List Initiated/Reviewed/Updated: Yes - My Orders Last 24 Hours: My Active Orders 07/14/17 20:34 Admission Status [Patient Status] [ADT] Routine 07/14/17 21:15 Temazepam [Restoril] 15 mg PO BEDTIME PRN 07/15/17 10:15 Consult to Physician [CONS] Routine 07/15/17 10:17 Notify Provider Consults [RC] ASDIRECTED 07/15/17 10:35 CULTURE WOUND [RM] Routine 07/15/17 15:00 Vancomycin [Vancocin] 1 gm Sodium Chloride 0.9% [Normal Saline] 250 ml IV Q24H - Plan Plan:: I/P: Acute: A-Fib with RVR -Noted in Dr. Gorman's office and on arrival to ED -Cardizem drip started, however pts. BP lowered so drip was stopped, patient self converted a short time later -12 lead EKG obtained during A-fib episode and after, with NSR noted recently -No hx/o AK, A-Fib, or electrolyte abnormalities -Potassium 4.2 -Magnesium ordered -Trop negative -TSH 2.630 -Telemetry - will hold off cardizem for now as patient is still in NSR with no ectopy noted. -Vital signs stable -Continue to monitor Cellulitis of left lower extremity -Erythema, redness, pain, and wound noted on left leg. -Patient reports she has had swelling for some time bilaterally in her legs -She reports left leg recently began to break open and drain. -On Keflex earlier from PCP with no improvement -Reportedly was started on Lasix by PCP prior for pedal edema -Vancomycin and Zosyn ordered -PRN pain meds -PT\OT for discharge planning and wound care -Patient reportedly underwent peripheral vascular studies this past Wednesday at [facility]. Will attempt to obtain records. -Dietitian consult -Patient has multiple risk factors including morbid obesity, diabetes, and pedal edema. -Lipid panel ordered -CRP ordered Chronic Type II DM -On metformin only -Reports she had A1C checked earlier this year and it was 6.1, it is now 7.2 -Diabetic nurse educator -BID blood glucose checks -Sliding scale insulin as infection may influence her blood sugars -ADA diet YONAS but not on CPAP as hers broke and she cannot obtain replacement until next calender year for insurance. Asthma Arthritis Chronic back pain - reports she was supposed to have surgery, however surgeon refused due to her obesity Morbid obesity - BMI 57.2 Plan: Admit to ICU CM/SW for discharge planning PT/OT as above DVT prophylaxis: Lovenox and ambulation GI prophylaxis: Pepcid Other orders as indicated above Home medications as ordered Routine AM labs Code Status: Full code; Her PCP is Suzi Solares at [facility], although she was reportedly told to see Dr. Gorman for internal medicine.
[2017-07-15] MEDS: Enoxaparin 40 MG/0.4 ML Syringe SUBCUT SCH (18:25)
[2017-07-15] MEDS: Albuterol/Ipratropium 3.0-0.5 MG/3 ML Neb Soln NEB PRN (20:36)
[2017-07-15] MEDS: Temazepam 15 MG Cap PO PRN (21:25)
[2017-07-16] MEDS: Acetaminophen/HYDROcodone 325-5 MG Tab PO PRN ×4 (01:26→20:22)
[2017-07-16] MEDS: Piperacillin/Tazobactam 4.5 GM in Sodium Chloride 0.9% 100 ML IV SCH ×3 (01:32→17:14)
[2017-07-16] MEDS ORDERED: Levothyroxine 125 MCG Tab ONE (05:15)
[2017-07-16] MEDS: Levothyroxine 25 MCG Tab PO SCH (05:25)
[2017-07-16] MEDS: Levothyroxine 112 MCG Tab PO SCH (05:25)
[2017-07-16] MEDS ORDERED: HYDROmorphone 0.5 MG/0.5 ML Syringe IVPUSH PRN (07:15)
--- NOTE | 2017-07-16 07:17 | CONS ---
CONSULTING PHYSICIAN: Jasson Elizalde DATE OF CONSULTATION: 07/15/2017 HISTORY OF PRESENT ILLNESS: This lady is admitted to the hospital with multiple medical problems including atrial fib with RVR, without chest pain or irregular rhythm. No shortness of breath. But I was asked to see her basically because of what appears to be a cellulitis of her left lower leg in the anteromedial aspect. She states that this area of breakdown of the skin and redness has been going on for about 3 weeks and has not increased and really nothing, ointments, etc., have not been able to eradicate it. She is 4 feet 8 inches and 255 pounds. BSA of 1.97 and a BMI of 57. She states that she has had a long history of edema of her lower extremities. She states that at one time she had this on her other leg, but it resolved on its own. On examination, she has minimal edema. She has a good pulse in the dorsum of her left foot, which is the affected limb and no calf tenderness and apparently a good capillary blushing (she does take metformin twice a day for her diabetes). She has areas of necrosis probably dime-sized and several of them across the anterior medial aspect of the leg and the crusting around it. 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 Perhaps, a skin punch biopsy might be of value and the characteristic areas may be seen, but in the meantime, basically her treatment is basically keeping it clean, dry, and letting the edema fluid get out of the leg and let this heal hopefully. I will discuss this with Dr. Tarango and see which path she wishes to follow and go from there. I thank you again for asking me to see her in consultation. LAYNE /[id number]
[2017-07-16] MEDS: Insulin Aspart 100 Units/ML 3 ML Pen SUBCUT SCH ×4 (07:21→21:45)
[2017-07-16] MEDS: Furosemide 20 MG Tab PO SCH (08:03)
[2017-07-16] MEDS: Ibuprofen 600 MG Tab PO PRN (08:03)
[2017-07-16] MEDS: Albuterol/Ipratropium 3.0-0.5 MG/3 ML Neb Soln NEB PRN (10:19)
[2017-07-16] MEDS: Bisacodyl 5 MG Tab PO PRN (10:29)
[2017-07-16] MEDS: Trospium 20 MG Tab PO SCH ×2 (10:30→17:14)
[2017-07-16] MEDS ORDERED: Furosemide 20 MG/2 ML VIAL IVPUSH ONE (11:30)
--- NOTE | 2017-07-16 16:39 | PCM.PN ---
- General Info Date of Service: 07/16/17 Functional Status: Reports: Tolerating Diet, Ambulating, Urinating - Review of Systems General: Reports: No Symptoms HEENT: Reports: No Symptoms Pulmonary: Reports: No Symptoms Cardiovascular: Reports: No Symptoms Gastrointestinal: Reports: No Symptoms Genitourinary: Reports: No Symptoms Musculoskeletal: Reports: No Symptoms Skin: Reports: No Symptoms Neurological: Reports: No Symptoms Psychiatric: Reports: No Symptoms - Patient Data Vitals - Most Recent: Last Vital Signs Temp 37.0 C 07/16/17 15:00 Pulse 84 07/16/17 15:00 Resp 19 07/16/17 15:00 BP 128/78 07/16/17 15:00 Pulse Ox 94 L 07/16/17 15:00 Weight - Most Recent: 125.781 kg I&O - Last 24 Hours: Intake & Output 07/16/17 07/16/17 07/16/17 06:59 14:59 22:59 Intake Total 1722 1105 1645 Output Total 280 1325 400 Balance 1442 -220 1245 Lab Results Last 24 Hours: Laboratory Results - last 24 hr 07/15/17 07/15/17 07/16/17 Range/Units 17:24 21:41 06:09 WBC (3.98-10.04) K/mm3 RBC (3.98-5.22) M/mm3 Hgb (11.2-15.7) gm/L Hct (34.1-44.9) % MCV (79.4-94.8) fl MCH (25.6-32.2) pg MCHC (32.2-35.5) g/dl RDW Std Deviation (36.4-46.3) fL Plt Count (182-369) K/mm3 MPV (9.4-12.3) fl Neut % (Auto) (34.0-71.1) % Lymph % (Auto) (19.3-51.7) % [place] % (Auto) (4.7-12.5) % Eos % (Auto) (0.7-5.8) Baso % (Auto) (0.1-1.2) % Neut # (Auto) (1.56-6.13) K/mm3 Lymph # (Auto) (1.18-3.74) K/mm3 [place] # (Auto) (0.24-0.36) K/mm3 Eos # (Auto) (0.04-0.36) K/mm3 Baso # (Auto) (0.01-0.08) K/mm3 Sodium (136-145) mEq/L Potassium (3.5-5.1) mEq/L Chloride (98-107) mEq/L Carbon Dioxide (21-32) mEq/L Anion Gap (5-15) BUN (7-18) mg/dL Creatinine (0.55-1.02) mg/dL Est Cr Clr Drug Dosing mL/min Estimated GFR (MDRD) (>60) mL/min BUN/Creatinine Ratio (14-18) Glucose (80-115) mg/dL POC Glucose 135 H 158 H 134 H (80-115) mg/dL Calcium (8.5-10.1) mg/dL Magnesium (1.8-2.4) mg/dl C-Reactive Protein (<1.0) mg/dL 07/16/17 07/16/17 07/16/17 Range/Units 06:10 06:10 11:56 WBC 7.94 (3.98-10.04) K/mm3 RBC 3.21 L (3.98-5.22) M/mm3 Hgb 9.0 L (11.2-15.7) gm/L Hct 28.3 L (34.1-44.9) % MCV 88.2 (79.4-94.8) fl MCH 28.0 (25.6-32.2) pg MCHC 31.8 L (32.2-35.5) g/dl RDW Std Deviation 44.8 (36.4-46.3) fL Plt Count 247 (182-369) K/mm3 MPV 9.7 (9.4-12.3) fl Neut % (Auto) 67.8 (34.0-71.1) % Lymph % (Auto) 16.9 L (19.3-51.7) % [place] % (Auto) 9.9 (4.7-12.5) % Eos % (Auto) 4.5 (0.7-5.8) Baso % (Auto) 0.4 (0.1-1.2) % Neut # (Auto) 5.38 (1.56-6.13) K/mm3 Lymph # (Auto) 1.34 (1.18-3.74) K/mm3 [place] # (Auto) 0.79 H (0.24-0.36) K/mm3 Eos # (Auto) 0.36 (0.04-0.36) K/mm3 Baso # (Auto) 0.03 (0.01-0.08) K/mm3 Sodium 136 (136-145) mEq/L Potassium 4.3 (3.5-5.1) mEq/L Chloride 106 (98-107) mEq/L Carbon Dioxide 22 (21-32) mEq/L Anion Gap 12.3 (5-15) BUN 15 (7-18) mg/dL Creatinine 0.8 (0.55-1.02) mg/dL Est Cr Clr Drug Dosing 50.36 mL/min Estimated GFR (MDRD) > 60 (>60) mL/min BUN/Creatinine Ratio 18.8 H (14-18) Glucose 128 H (80-115) mg/dL POC Glucose 145 H (80-115) mg/dL Calcium 8.2 L (8.5-10.1) mg/dL Magnesium 2.0 (1.8-2.4) mg/dl C-Reactive Protein 3.9 H* (<1.0) mg/dL [place] Results Last 24 Hours: Microbiology 07/15/17 10:35 Wound Culture - Preliminary Leg, Left Gram Positive Cocci Med Orders - Current: Current Medications Hydrocodone Bitart/Acetaminophen ([place] 325-5 Mg) 1 tab PO Q4H PRN PRN Reason: Pain (moderate 4-6) Last Admin: 07/16/17 10:33 Dose: 1 tab Albuterol/Ipratropium (Duoneb 3.0-0.5 Mg/3 Ml) 3 ml NEB Q4H PRN PRN Reason: Shortness Of Breath/wheezing Last Admin: 07/16/17 10:19 Dose: 3 ml Bisacodyl (Dulcolax) 5 mg PO DAILY PRN PRN Reason: Constipation Last Admin: 07/16/17 10:29 Dose: 5 mg Dextrose/Water (Dextrose 50% In Water) 50 ml IVPUSH ASDIRECTED PRN PRN Reason: Hypoglycemia Docusate Sodium (Colace) 100 mg PO BID PRN PRN Reason: Constipation Last Admin: 07/16/17 10:29 Dose: 100 mg Enoxaparin Sodium (Lovenox) 40 mg SUBCUT Q24H [facility] Last Admin: 07/15/17 18:25 Dose: 40 mg Furosemide (Lasix) 20 mg PO DAILY [facility] Last Admin: 07/16/17 08:03 Dose: 20 mg Hydromorphone HCl (Dilaudid) 0.5 mg IVPUSH Q2H PRN PRN Reason: Pain (severe 7-10) Vancomycin HCl 1 gm/ Sodium (Chloride) 250 mls @ 250 mls/hr IV Q12H [facility] Last Admin: 07/16/17 10:32 Dose: 250 mls/hr Piperacillin Sod/Tazobactam (Sod 4.5 gm/ Sodium Chloride) 100 mls @ 25 mls/hr IV Q8H [facility] Last Admin: 07/16/17 12:21 Dose: 25 mls/hr Ibuprofen (Motrin) 600 mg PO Q6H PRN PRN Reason: Pain (moderate 4-6) Last Admin: 07/16/17 08:03 Dose: 600 mg Insulin Aspart (Novolog) 0 unit SUBCUT QIDACANDBED [facility] PRN Reason: Protocol Last Admin: 07/16/17 11:57 Dose: Not Given Levothyroxine Sodium (Levothyroxine) 112 mcg PO DAILY@0600 [facility] Last Admin: 07/16/17 05:25 Dose: 112 mcg Levothyroxine Sodium (Levothyroxine) 25 mcg PO DAILY@0600 [facility] Last Admin: 07/16/17 05:25 Dose: 25 mcg Ondansetron HCl (Zofran Odt) 4 mg PO Q6H PRN PRN Reason: nausea, able to take PO Last Admin: 07/15/17 11:46 Dose: 4 mg Ondansetron HCl (Zofran) 4 mg IV Q6H PRN PRN Reason: Nausea/Vomiting Last Admin: 07/14/17 17:34 Dose: 4 mg Polyethylene Glycol (Miralax) 17 gm PO DAILY PRN PRN Reason: Constipation Rosuvastatin Calcium (Crestor) 10 mg PO BEDTIME [facility] Senna/Docusate Sodium (Senna Plus) 1 tab PO BID PRN PRN Reason: Constipation Sodium Chloride (Saline Flush) 10 ml FLUSH ASDIRECTED PRN PRN Reason: Keep Vein Open Last Admin: 07/14/17 12:44 Dose: 10 ml Temazepam (Restoril) 15 mg PO BEDTIME PRN PRN Reason: Sleep Last Admin: 07/15/17 21:25 Dose: 15 mg Trospium (Sanctura) 20 mg PO BIDAC HARESH Last Admin: 07/16/17 10:30 Dose: 20 mg Vancomycin HCl (Pharmacy To Dose - Vancomycin) 1 dose .XX ASDIRECTED PRN PRN Reason: RX to Dose Discontinued Medications Diltiazem HCl (Diltiazem) 10 mg IVPUSH ONETIME ONE Stop: 07/14/17 12:28 Last Admin: 07/14/17 12:43 Dose: 10 mg Furosemide (Lasix) 20 mg IVPUSH ONETIME ONE Stop: 07/16/17 11:31 Last Admin: 07/16/17 11:52 Dose: 20 mg Hydromorphone HCl (Dilaudid) 0.5 mg IVPUSH ONETIME ONE Stop: 07/14/17 13:09 Last Admin: 07/14/17 13:25 Dose: 0.5 mg Hydromorphone HCl (Dilaudid) 1 mg IVPUSH ONETIME ONE Stop: 07/14/17 15:13 Last Admin: 07/14/17 15:20 Dose: 1 mg Hydromorphone HCl (Dilaudid) 0.5 mg IVPUSH Q2H PRN PRN Reason: Pain (severe 7-10) Last Admin: 07/15/17 21:24 Dose: 0.5 mg Diltiazem HCl 125 mg/ Sodium (Chloride) 125 mls @ 10 mls/hr IV TITRATE HARESH; 10 MG/HR PRN Reason: Protocol Last Titration: 07/14/17 16:10 Dose: 0 mg/hr, 0 mls/hr Sodium Chloride (Normal Saline) 1,000 mls @ 125 mls/hr IV ASDIRECTED HARESH Last Admin: 07/15/17 21:58 Dose: 125 mls/hr Vancomycin HCl 2 gm/ Sodium (Chloride) 250 mls @ 250 mls/hr IV ONETIME ONE Stop: 07/14/17 16:52 Last Admin: 07/14/17 17:53 Dose: Not Given Vancomycin HCl 2 gm/ Sodium (Chloride) 500 mls @ 333 mls/hr IV ONETIME ONE Stop: 07/14/17 19:30 Last Admin: 07/14/17 18:48 Dose: 333 mls/hr Piperacillin Sod/Tazobactam (Sod 4.5 gm/ Sodium Chloride) 100 mls @ 25 mls/hr IV Q8H [facility] Last Admin: 07/16/17 01:32 Dose: 25 mls/hr Piperacillin Sod/Tazobactam (Sod 4.5 gm/ Sodium Chloride) 100 mls @ 200 mls/hr IV ONETIME ONE Stop: 07/14/17 18:29 Last Admin: 07/14/17 18:08 Dose: 200 mls/hr Vancomycin HCl 1 gm/ Sodium (Chloride) 250 mls @ 250 mls/hr IV Q24H [facility] Last Admin: 07/15/17 15:01 Dose: 250 mls/hr Levothyroxine Sodium (Levothroid) 137 mcg PO ACBREAKFAST [facility] Levothyroxine Sodium (Levothyroxine) Confirm Administered Dose 125 mcg .ROUTE .STK-MED ONE Stop: 07/16/17 05:16 Last Admin: 07/16/17 06:26 Dose: Not Given - Exam Quality Assessment: DVT Prophylaxis General: Alert, Oriented, Cooperative, No Acute Distress HEENT: Pupils Equal, Pupils Reactive, EOMI Neck: Supple, Trachea Midline Lungs: Normal Respiratory Effort Cardiovascular: Regular Rate, Regular Rhythm GI/Abdominal Exam: Normal Bowel Sounds, Soft, Non-Tender, No Organomegaly, No Distention (Female) Exam: Deferred Back Exam: Normal Inspection Extremities: Normal Inspection, Pedal Edema Wound/Incisions: Dressing Dry and Intact Neurological: No New Focal Deficit Psy/Mental Status: Alert, Normal Affect, Normal Mood - Problem List Review Problem List Initiated/Reviewed/Updated: Yes - My Orders Last 24 Hours: My Active Orders 07/16/17 06:00 Levothyroxine 112 mcg PO DAILY@0600 Levothyroxine 25 mcg PO DAILY@0600 07/16/17 09:00 Furosemide [Lasix] 20 mg PO DAILY Trospium [Sanctura] 20 mg PO BIDAC Vancomycin 1 gm Sodium Chloride 0.9% [Normal Saline] 250 ml IV Q12H 07/16/17 21:00 Rosuvastatin [Crestor] 10 mg PO BEDTIME 07/17/17 20:00 VANCOMYCIN TROUGH [CHEM] Routine - Plan Plan:: I/P: Acute: A-Fib with RVR--->resolved; PAF Started on BB Necrobiosis Lipoidica Diabeticorum--->Cellulitis -Erythema, redness, pain, and wound noted on LLE -She reports left leg recently began to break open and drain. -On Keflex earlier from PCP with no improvement; failed OP treatment. -Vancomycin and Zosyn; goal 5 days of Vancomycin before DC. -PRN pain meds -Wound care per PT Chronic Type II DM -On metformin only -Reports she had A1C checked earlier this year and it was 6.1---> 7.2 -Diabetic nurse educator -BID blood glucose checks -Sliding scale insulin as infection may influence her blood sugars -ADA diet Morbid obesity--->BMI 57 YONAS but not on CPAP as hers is broken and she cannot obtain replacement until next calender year for insurance. Asthma Arthritis Chronic back pain - reports she was supposed to have surgery, however surgeon refused due to her obesity Plan: CM/JOCELYN for discharge planning PT/OT as above DVT prophylaxis: Lovenox and ambulation GI prophylaxis: Pepcid Other orders as indicated above Home medications as ordered Routine AM labs Code Status: Full code; Her PCP is Suzi Solares at [facility], although she was reportedly told to see Dr. Gorman for internal medicine.
[2017-07-16] MEDS: Enoxaparin 40 MG/0.4 ML Syringe SUBCUT SCH (17:14)
[2017-07-16] MEDS: Rosuvastatin 10 MG Tab PO SCH (20:22)
[2017-07-16] MEDS: Temazepam 15 MG Cap PO PRN (20:22)
[2017-07-16] MEDS ORDERED: Metoprolol Tartrate 25 MG Tab PO SCH (21:30)
[2017-07-16] MEDS: Metoprolol Tartrate 25 MG Tab PO SCH (21:38)
[2017-07-17] MEDS: Piperacillin/Tazobactam 4.5 GM in Sodium Chloride 0.9% 100 ML IV SCH ×2 (02:05→10:43)
[2017-07-17] MEDS: Acetaminophen/HYDROcodone 325-5 MG Tab PO PRN ×5 (02:26→21:11)
[2017-07-17] MEDS: Levothyroxine 25 MCG Tab PO SCH (06:04)
[2017-07-17] MEDS: Trospium 20 MG Tab PO SCH ×2 (06:04→15:08)
[2017-07-17] MEDS: Levothyroxine 112 MCG Tab PO SCH (06:04)
[2017-07-17] MEDS: Insulin Aspart 100 Units/ML 3 ML Pen SUBCUT SCH ×4 (08:12→22:30)
[2017-07-17] MEDS: Furosemide 20 MG Tab PO SCH (08:13)
[2017-07-17] MEDS: Bisacodyl 5 MG Tab PO PRN (08:16)
[2017-07-17] MEDS: Metoprolol Tartrate 25 MG Tab PO SCH ×2 (08:16→20:42)
[2017-07-17] MEDS ORDERED: Furosemide 20 MG/2 ML VIAL IVPUSH ONE (12:00)
[2017-07-17] MEDS: Ondansetron 4 MG Tab.DIS PO PRN (12:14)
[2017-07-17] MEDS ORDERED: Magnesium Sulfate/Water 2 GM in Premix Bag 1 BAG IV ONE (14:14)
--- NOTE | 2017-07-17 14:24 | PCM.PN ---
- General Info Functional Status: Reports: Pain Controlled, Tolerating Diet, Ambulating, Urinating - Review of Systems General: Reports: No Symptoms HEENT: Reports: No Symptoms Pulmonary: Reports: Shortness of Breath Cardiovascular: Reports: No Symptoms Gastrointestinal: Reports: No Symptoms Genitourinary: Reports: No Symptoms Musculoskeletal: Reports: No Symptoms Skin: Reports: No Symptoms Neurological: Reports: No Symptoms Psychiatric: Reports: No Symptoms - Patient Data Vitals - Most Recent: Last Vital Signs Temp 36.6 C 07/17/17 09:00 Pulse 80 07/17/17 08:16 Resp 20 07/17/17 09:00 BP 169/84 H 07/17/17 09:00 Pulse Ox 96 07/17/17 09:00 Weight - Most Recent: 121.93 kg I&O - Last 24 Hours: Intake & Output 07/16/17 07/17/17 07/17/17 22:59 06:59 14:59 Intake Total 2225 870 440 Output Total 1375 1510 1300 Balance 850 -253 -820 Lab Results Last 24 Hours: Laboratory Results - last 24 hr 07/16/17 07/16/17 07/17/17 Range/Units 17:18 20:34 06:07 WBC (3.98-10.04) K/mm3 RBC (3.98-5.22) M/mm3 Hgb (11.2-15.7) gm/L Hct (34.1-44.9) % MCV (79.4-94.8) fl MCH (25.6-32.2) pg MCHC (32.2-35.5) g/dl RDW Std Deviation (36.4-46.3) fL Plt Count (182-369) K/mm3 MPV (9.4-12.3) fl Neut % (Auto) (34.0-71.1) % Lymph % (Auto) (19.3-51.7) % [place] % (Auto) (4.7-12.5) % Eos % (Auto) (0.7-5.8) Baso % (Auto) (0.1-1.2) % Neut # (Auto) (1.56-6.13) K/mm3 Lymph # (Auto) (1.18-3.74) K/mm3 [place] # (Auto) (0.24-0.36) K/mm3 Eos # (Auto) (0.04-0.36) K/mm3 Baso # (Auto) (0.01-0.08) K/mm3 Sodium (136-145) mEq/L Potassium (3.5-5.1) mEq/L Chloride (98-107) mEq/L Carbon Dioxide (21-32) mEq/L Anion Gap (5-15) BUN (7-18) mg/dL Creatinine (0.55-1.02) mg/dL Est Cr Clr Drug Dosing mL/min Estimated GFR (MDRD) (>60) mL/min BUN/Creatinine Ratio (14-18) Glucose (80-115) mg/dL POC Glucose 129 H 172 H 124 H (80-115) mg/dL Calcium (8.5-10.1) mg/dL Magnesium (1.8-2.4) mg/dl C-Reactive Protein (<1.0) mg/dL 07/17/17 07/17/17 07/17/17 Range/Units 06:10 06:10 12:14 WBC 8.69 (3.98-10.04) K/mm3 RBC 3.28 L (3.98-5.22) M/mm3 Hgb 9.1 L (11.2-15.7) gm/L Hct 28.5 L (34.1-44.9) % MCV 86.9 (79.4-94.8) fl MCH 27.7 (25.6-32.2) pg MCHC 31.9 L (32.2-35.5) g/dl RDW Std Deviation 44.0 (36.4-46.3) fL Plt Count 304 (182-369) K/mm3 MPV 9.8 (9.4-12.3) fl Neut % (Auto) 69.6 (34.0-71.1) % Lymph % (Auto) 14.6 L (19.3-51.7) % [place] % (Auto) 9.8 (4.7-12.5) % Eos % (Auto) 5.4 (0.7-5.8) Baso % (Auto) 0.3 (0.1-1.2) % Neut # (Auto) 6.04 (1.56-6.13) K/mm3 Lymph # (Auto) 1.27 (1.18-3.74) K/mm3 [place] # (Auto) 0.85 H (0.24-0.36) K/mm3 Eos # (Auto) 0.47 H (0.04-0.36) K/mm3 Baso # (Auto) 0.03 (0.01-0.08) K/mm3 Sodium 137 (136-145) mEq/L Potassium 4.6 (3.5-5.1) mEq/L Chloride 104 (98-107) mEq/L Carbon Dioxide 25 (21-32) mEq/L Anion Gap 12.6 (5-15) BUN 18 (7-18) mg/dL Creatinine 0.8 (0.55-1.02) mg/dL Est Cr Clr Drug Dosing 50.36 mL/min Estimated GFR (MDRD) > 60 (>60) mL/min BUN/Creatinine Ratio 22.5 H (14-18) Glucose 120 H (80-115) mg/dL POC Glucose 131 H (80-115) mg/dL Calcium 8.7 (8.5-10.1) mg/dL Magnesium 1.8 (1.8-2.4) mg/dl C-Reactive Protein 4.0 H* (<1.0) mg/dL [place] Results Last 24 Hours: Microbiology 07/15/17 10:35 Wound Culture - Final Leg, Left Enterococcus Faecalis Med Orders - Current: Current Medications Hydrocodone Bitart/Acetaminophen ([place] 325-5 Mg) 1 tab PO Q4H PRN PRN Reason: Pain (moderate 4-6) Last Admin: 07/17/17 12:51 Dose: 1 tab Albuterol/Ipratropium (Duoneb 3.0-0.5 Mg/3 Ml) 3 ml NEB Q4H PRN PRN Reason: Shortness Of Breath/wheezing Last Admin: 07/16/17 10:19 Dose: 3 ml Bisacodyl (Dulcolax) 5 mg PO DAILY PRN PRN Reason: Constipation Last Admin: 07/17/17 08:16 Dose: 5 mg Dextrose/Water (Dextrose 50% In Water) 50 ml IVPUSH ASDIRECTED PRN PRN Reason: Hypoglycemia Docusate Sodium (Colace) 100 mg PO BID PRN PRN Reason: Constipation Last Admin: 07/16/17 10:29 Dose: 100 mg Enoxaparin Sodium (Lovenox) 40 mg SUBCUT Q24H [facility] Last Admin: 07/16/17 17:14 Dose: 40 mg Furosemide (Lasix) 20 mg PO DAILY [facility] Last Admin: 07/17/17 08:13 Dose: 20 mg Hydromorphone HCl (Dilaudid) 0.5 mg IVPUSH Q2H PRN PRN Reason: Pain (severe 7-10) Magnesium Sulfate 2 gm/ Premix 50 mls @ 25 mls/hr IV ONETIME ONE Stop: 07/17/17 16:13 Ampicillin Sodium/Sulbactam (Sodium 3 gm/ Sodium Chloride) 100 mls @ 200 mls/ hr IV Q6H [facility]ESH Ibuprofen (Motrin) 600 mg PO Q6H PRN PRN Reason: Pain (moderate 4-6) Last Admin: 07/16/17 08:03 Dose: 600 mg Insulin Aspart (Novolog) 0 unit SUBCUT QIDACANDBED [facility] PRN Reason: Protocol Last Admin: 07/17/17 12:15 Dose: Not Given Levothyroxine Sodium (Levothyroxine) 112 mcg PO DAILY@0600 [facility] Last Admin: 07/17/17 06:04 Dose: 112 mcg Levothyroxine Sodium (Levothyroxine) 25 mcg PO DAILY@0600 [facility] Last Admin: 07/17/17 06:04 Dose: 25 mcg Metoprolol Tartrate (Lopressor) 25 mg PO Q12HR [facility] Last Admin: 07/17/17 08:16 Dose: 25 mg Ondansetron HCl (Zofran Odt) 4 mg PO Q6H PRN PRN Reason: nausea, able to take PO Last Admin: 07/17/17 12:14 Dose: 4 mg Ondansetron HCl (Zofran) 4 mg IV Q6H PRN PRN Reason: Nausea/Vomiting Last Admin: 07/14/17 17:34 Dose: 4 mg Polyethylene Glycol (Miralax) 17 gm PO DAILY PRN PRN Reason: Constipation Last Admin: 07/17/17 08:12 Dose: 17 gm Rosuvastatin Calcium (Crestor) 10 mg PO BEDTIME [facility] Last Admin: 07/16/17 20:22 Dose: 10 mg Senna/Docusate Sodium (Senna Plus) 1 tab PO BID PRN PRN Reason: Constipation Last Admin: 07/16/17 20:21 Dose: 1 tab Sodium Chloride (Saline Flush) 10 ml FLUSH ASDIRECTED PRN PRN Reason: Keep Vein Open Last Admin: 07/14/17 12:44 Dose: 10 ml Temazepam (Restoril) 15 mg PO BEDTIME PRN PRN Reason: Sleep Last Admin: 07/16/17 20:22 Dose: 15 mg Trospium (Sanctura) 20 mg PO BIDAC HARESH Last Admin: 07/17/17 06:04 Dose: 20 mg Discontinued Medications Diltiazem HCl (Diltiazem) 10 mg IVPUSH ONETIME ONE Stop: 07/14/17 12:28 Last Admin: 07/14/17 12:43 Dose: 10 mg Furosemide (Lasix) 20 mg IVPUSH ONETIME ONE Stop: 07/16/17 11:31 Last Admin: 07/16/17 11:52 Dose: 20 mg Furosemide (Lasix) 20 mg IVPUSH ONETIME ONE Stop: 07/17/17 12:01 Last Admin: 07/17/17 12:15 Dose: 20 mg Hydromorphone HCl (Dilaudid) 0.5 mg IVPUSH ONETIME ONE Stop: 07/14/17 13:09 Last Admin: 07/14/17 13:25 Dose: 0.5 mg Hydromorphone HCl (Dilaudid) 1 mg IVPUSH ONETIME ONE Stop: 07/14/17 15:13 Last Admin: 07/14/17 15:20 Dose: 1 mg Hydromorphone HCl (Dilaudid) 0.5 mg IVPUSH Q2H PRN PRN Reason: Pain (severe 7-10) Last Admin: 07/15/17 21:24 Dose: 0.5 mg Diltiazem HCl 125 mg/ Sodium (Chloride) 125 mls @ 10 mls/hr IV TITRATE HARESH; 10 MG/HR PRN Reason: Protocol Last Titration: 07/14/17 16:10 Dose: 0 mg/hr, 0 mls/hr Sodium Chloride (Normal Saline) 1,000 mls @ 125 mls/hr IV ASDIRECTED HARESH Last Admin: 07/15/17 21:58 Dose: 125 mls/hr Vancomycin HCl 2 gm/ Sodium (Chloride) 250 mls @ 250 mls/hr IV ONETIME ONE Stop: 07/14/17 16:52 Last Admin: 07/14/17 17:53 Dose: Not Given Vancomycin HCl 2 gm/ Sodium (Chloride) 500 mls @ 333 mls/hr IV ONETIME ONE Stop: 07/14/17 19:30 Last Admin: 07/14/17 18:48 Dose: 333 mls/hr Piperacillin Sod/Tazobactam (Sod 4.5 gm/ Sodium Chloride) 100 mls @ 25 mls/hr IV Q8H [facility] Last Admin: 07/16/17 01:32 Dose: 25 mls/hr Piperacillin Sod/Tazobactam (Sod 4.5 gm/ Sodium Chloride) 100 mls @ 200 mls/hr IV ONETIME ONE Stop: 07/14/17 18:29 Last Admin: 07/14/17 18:08 Dose: 200 mls/hr Vancomycin HCl 1 gm/ Sodium (Chloride) 250 mls @ 250 mls/hr IV Q24H [facility] Last Admin: 07/15/17 15:01 Dose: 250 mls/hr Vancomycin HCl 1 gm/ Sodium (Chloride) 250 mls @ 250 mls/hr IV Q12H [facility] Last Admin: 07/17/17 08:21 Dose: 250 mls/hr Piperacillin Sod/Tazobactam (Sod 4.5 gm/ Sodium Chloride) 100 mls @ 25 mls/hr IV Q8H [facility] Last Admin: 07/17/17 10:43 Dose: 25 mls/hr Levothyroxine Sodium (Levothroid) 137 mcg PO ACBREAKFAST [facility] Levothyroxine Sodium (Levothyroxine) Confirm Administered Dose 125 mcg .ROUTE .STK-MED ONE Stop: 07/16/17 05:16 Last Admin: 07/16/17 06:26 Dose: Not Given Metoprolol Tartrate (Lopressor) 25 mg PO Q8H [facility] Vancomycin HCl (Pharmacy To Dose - Vancomycin) 1 dose .XX ASDIRECTED PRN PRN Reason: RX to Dose - Exam Quality Assessment: Supplemental Oxygen, DVT Prophylaxis General: Alert, Oriented, Cooperative, No Acute Distress HEENT: Pupils Equal, Pupils Reactive, EOMI Neck: Supple, Trachea Midline Lungs: Normal Respiratory Effort, Decreased Breath Sounds Cardiovascular: Regular Rate, Irregular Rhythm GI/Abdominal Exam: Normal Bowel Sounds, Soft, Non-Tender, No Organomegaly, No Distention (Female) Exam: Deferred Back Exam: Normal Inspection Extremities: Normal Inspection Skin: Warm Wound/Incisions: Dressing Dry and Intact Neurological: No New Focal Deficit, Normal Speech Psy/Mental Status: Alert, Normal Affect, Normal Mood - Problem List Review Problem List Initiated/Reviewed/Updated: Yes - My Orders Last 24 Hours: My Active Orders 07/16/17 18:24 Communication Order [RC] ,07/16/17 19:51 Communication Order [RC] 07/16/17 21:00 Metoprolol Tartrate [Lopressor] 25 mg PO Q12HR Rosuvastatin [Crestor] 10 mg PO BEDTIME 07/17/17 09:47 Chest 2V [CR] Routine 07/17/17 14:14 Magnesium Sulfate/Water [Magnesium Sulfate 2 GM in Water 50 ML] 2 gm Premix Bag 1 bag IV ONETIME 07/17/17 14:30 Ampicillin/Sulbactam Na [Unasyn] 3 gm Sodium Chloride 0.9% [Normal Saline] 100 ml IV Q6H 07/17/17 20:00 VANCOMYCIN TROUGH [CHEM] Routine - Plan Plan:: I/P: Acute: A-Fib with RVR--->resolved; PAF Started on BB 2D echo ordered. 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 -On Keflex earlier from PCP with no improvement; failed OP treatment. -Vanco/Zosyn stopped based on sensitivity; E faecalis is the organism sensitive to Ampicillin -PRN pain meds -Wound care per PT Chronic Type II DM -On metformin only -Reports she had A1C checked earlier this year and it was 6.1---> 7.2 -Diabetic nurse educator -BID blood glucose checks -Sliding scale insulin as infection may influence her blood sugars -ADA diet Morbid obesity--->BMI 57 YONAS but not on CPAP as hers is broken and she cannot obtain replacement until next calender year for insurance. Asthma Arthritis Chronic back pain - reports she was supposed to have surgery, however surgeon refused due to her obesity Plan: CM/SW for discharge planning PT/OT as above PT for wound changes Start Unasyn, will dc on Augmentin. DVT prophylaxis: Lovenox GI prophylaxis: Pepcid Other orders as indicated above Home medications as ordered Routine AM labs ########LOS>96 hours, slow response to therapy. Code Status: Full code; Her PCP is Suzi Solares at [facility], although she was reportedly told to see Dr. Gorman for internal medicine.
[2017-07-17] MEDS: Ampicillin/Sulbactam Na 3 GM in Sodium Chloride 0.9% 100 ML IV SCH ×2 (16:34→21:06)
[2017-07-17] MEDS: Enoxaparin 40 MG/0.4 ML Syringe SUBCUT SCH (17:11)
[2017-07-17] MEDS: Rosuvastatin 10 MG Tab PO SCH (20:41)
[2017-07-17] MEDS: Temazepam 15 MG Cap PO PRN (21:45)
[2017-07-18] MEDS: Ondansetron 4 MG Tab.DIS PO PRN (01:00)
[2017-07-18] MEDS: Acetaminophen/HYDROcodone 325-5 MG Tab PO PRN ×4 (01:15→21:02)
[2017-07-18] MEDS: Ampicillin/Sulbactam Na 3 GM in Sodium Chloride 0.9% 100 ML IV SCH ×2 (02:55→09:35)
[2017-07-18] MEDS: Levothyroxine 112 MCG Tab PO SCH (06:06)
[2017-07-18] MEDS: Levothyroxine 25 MCG Tab PO SCH (06:06)
[2017-07-18] MEDS: Trospium 20 MG Tab PO SCH ×2 (06:07→15:21)
[2017-07-18] MEDS: Insulin Aspart 100 Units/ML 3 ML Pen SUBCUT SCH ×4 (06:48→21:03)
[2017-07-18] MEDS: Metoprolol Tartrate 25 MG Tab PO SCH ×2 (09:07→21:02)
[2017-07-18] MEDS: Furosemide 20 MG Tab PO SCH (09:07)
[2017-07-18] MEDS ORDERED: traMADol 50 MG Tab PO PRN (11:02)
[2017-07-18] MEDS: Lisinopril 20 MG Tab PO SCH ×2 (11:03→21:03)
--- NOTE | 2017-07-18 11:03 | PCM.PN ---
- General Info Date of Service: 07/18/17 Functional Status: Reports: Other (thinks that see is wheezing and needs pain meds to help her.) - Review of Systems General: Reports: No Symptoms HEENT: Reports: No Symptoms Pulmonary: Reports: No Symptoms Cardiovascular: Reports: No Symptoms Gastrointestinal: Reports: No Symptoms Genitourinary: Reports: No Symptoms Musculoskeletal: Reports: No Symptoms Skin: Reports: No Symptoms Neurological: Reports: No Symptoms Psychiatric: Reports: No Symptoms - Patient Data Vitals - Most Recent: Last Vital Signs Temp 36.5 C 07/18/17 08:03 Pulse 65 07/18/17 09:07 Resp 16 07/18/17 08:03 BP 156/84 H 07/18/17 09:07 Pulse Ox 97 07/18/17 08:03 Weight - Most Recent: 120.429 kg I&O - Last 24 Hours: Intake & Output 07/17/17 07/18/17 07/18/17 22:59 06:59 14:59 Intake Total 1350 760 Output Total 1300 900 Balance 50 -140 Lab Results Last 24 Hours: Laboratory Results - last 24 hr 07/17/17 07/17/17 07/17/17 Range/Units 12:14 17:14 20:37 WBC (3.98-10.04) K/mm3 RBC (3.98-5.22) M/mm3 Hgb (11.2-15.7) gm/L Hct (34.1-44.9) % MCV (79.4-94.8) fl MCH (25.6-32.2) pg MCHC (32.2-35.5) g/dl RDW Std Deviation (36.4-46.3) fL Plt Count (182-369) K/mm3 MPV (9.4-12.3) fl Neut % (Auto) (34.0-71.1) % Lymph % (Auto) (19.3-51.7) % [place] % (Auto) (4.7-12.5) % Eos % (Auto) (0.7-5.8) Baso % (Auto) (0.1-1.2) % Neut # (Auto) (1.56-6.13) K/mm3 Lymph # (Auto) (1.18-3.74) K/mm3 [place] # (Auto) (0.24-0.36) K/mm3 Eos # (Auto) (0.04-0.36) K/mm3 Baso # (Auto) (0.01-0.08) K/mm3 Sodium (136-145) mEq/L Potassium (3.5-5.1) mEq/L Chloride (98-107) mEq/L Carbon Dioxide (21-32) mEq/L Anion Gap (5-15) BUN (7-18) mg/dL Creatinine (0.55-1.02) mg/dL Est Cr Clr Drug Dosing mL/min Estimated GFR (MDRD) (>60) mL/min BUN/Creatinine Ratio (14-18) Glucose (80-115) mg/dL POC Glucose 131 H 110 104 (80-115) mg/dL Calcium (8.5-10.1) mg/dL Magnesium (1.8-2.4) mg/dl C-Reactive Protein (<1.0) mg/dL 07/18/17 07/18/17 07/18/17 Range/Units 05:50 05:55 07:05 WBC 9.02 (3.98-10.04) K/mm3 RBC 3.49 L (3.98-5.22) M/mm3 Hgb 9.7 L (11.2-15.7) gm/L Hct 29.7 L (34.1-44.9) % MCV 85.1 (79.4-94.8) fl MCH 27.8 (25.6-32.2) pg MCHC 32.7 (32.2-35.5) g/dl RDW Std Deviation 41.9 (36.4-46.3) fL Plt Count 225 (182-369) K/mm3 MPV 10.8 (9.4-12.3) fl Neut % (Auto) 74.1 H (34.0-71.1) % Lymph % (Auto) 12.3 L (19.3-51.7) % [place] % (Auto) 8.6 (4.7-12.5) % Eos % (Auto) 4.0 (0.7-5.8) Baso % (Auto) 0.4 (0.1-1.2) % Neut # (Auto) 6.68 H (1.56-6.13) K/mm3 Lymph # (Auto) 1.11 L (1.18-3.74) K/mm3 [place] # (Auto) 0.78 H (0.24-0.36) K/mm3 Eos # (Auto) 0.36 (0.04-0.36) K/mm3 Baso # (Auto) 0.04 (0.01-0.08) K/mm3 Sodium 136 (136-145) mEq/L Potassium 3.8 (3.5-5.1) mEq/L Chloride 100 (98-107) mEq/L Carbon Dioxide 28 (21-32) mEq/L Anion Gap 11.8 (5-15) BUN 16 (7-18) mg/dL Creatinine 0.9 (0.55-1.02) mg/dL Est Cr Clr Drug Dosing 44.76 mL/min Estimated GFR (MDRD) > 60 (>60) mL/min BUN/Creatinine Ratio 17.8 (14-18) Glucose 133 H (80-115) mg/dL POC Glucose 132 H (80-115) mg/dL Calcium 9.0 (8.5-10.1) mg/dL Magnesium 2.0 (1.8-2.4) mg/dl C-Reactive Protein 4.1 H* (<1.0) mg/dL [place] Results Last 24 Hours: Microbiology 07/15/17 10:35 Wound Culture - Final Leg, Left Enterococcus Faecalis Med Orders - Current: Current Medications Hydrocodone Bitart/Acetaminophen ([place] 325-5 Mg) 1 tab PO Q4H PRN PRN Reason: Pain (moderate 4-6) Last Admin: 07/18/17 09:08 Dose: 1 tab Albuterol/Ipratropium (Duoneb 3.0-0.5 Mg/3 Ml) 3 ml NEB Q4H PRN PRN Reason: Shortness Of Breath/wheezing Last Admin: 07/16/17 10:19 Dose: 3 ml Bisacodyl (Dulcolax) 5 mg PO DAILY PRN PRN Reason: Constipation Last Admin: 07/17/17 08:16 Dose: 5 mg Dextrose/Water (Dextrose 50% In Water) 50 ml IVPUSH ASDIRECTED PRN PRN Reason: Hypoglycemia Docusate Sodium (Colace) 100 mg PO BID PRN PRN Reason: Constipation Last Admin: 07/16/17 10:29 Dose: 100 mg Enoxaparin Sodium (Lovenox) 40 mg SUBCUT Q24H [facility] Last Admin: 07/17/17 17:11 Dose: 40 mg Furosemide (Lasix) 20 mg PO DAILY [facility] Last Admin: 07/18/17 09:07 Dose: 20 mg Hydromorphone HCl (Dilaudid) 0.5 mg IVPUSH Q2H PRN PRN Reason: Pain (severe 7-10) Last Admin: 07/17/17 23:39 Dose: 0.5 mg Ampicillin Sodium 1 gm/ Sodium (Chloride) 100 mls @ 200 mls/hr IV Q8H [facility] Insulin Aspart (Novolog) 0 unit SUBCUT QIDACANDBED [facility] PRN Reason: Protocol Last Admin: 07/18/17 06:48 Dose: Not Given Levothyroxine Sodium (Levothyroxine) 112 mcg PO DAILY@0600 [facility] Last Admin: 07/18/17 06:06 Dose: 112 mcg Levothyroxine Sodium (Levothyroxine) 25 mcg PO DAILY@0600 [facility] Last Admin: 07/18/17 06:06 Dose: 25 mcg Lisinopril (Prinivil) 20 mg PO BID [facility] Metoprolol Tartrate (Lopressor) 25 mg PO Q12HR [facility] Last Admin: 07/18/17 09:07 Dose: 25 mg Ondansetron HCl (Zofran Odt) 4 mg PO Q6H PRN PRN Reason: nausea, able to take PO Last Admin: 07/18/17 01:00 Dose: 4 mg Ondansetron HCl (Zofran) 4 mg IV Q6H PRN PRN Reason: Nausea/Vomiting Last Admin: 07/14/17 17:34 Dose: 4 mg Polyethylene Glycol (Miralax) 17 gm PO DAILY PRN PRN Reason: Constipation Last Admin: 07/17/17 08:12 Dose: 17 gm Rosuvastatin Calcium (Crestor) 10 mg PO BEDTIME [facility] Last Admin: 07/17/17 20:41 Dose: 10 mg Senna/Docusate Sodium (Senna Plus) 1 tab PO BID PRN PRN Reason: Constipation Last Admin: 07/16/17 20:21 Dose: 1 tab Sodium Chloride (Saline Flush) 10 ml FLUSH ASDIRECTED PRN PRN Reason: Keep Vein Open Last Admin: 07/14/17 12:44 Dose: 10 ml Temazepam (Restoril) 15 mg PO BEDTIME PRN PRN Reason: Sleep Last Admin: 07/17/17 21:45 Dose: 15 mg Trospium (Sanctura) 20 mg PO BIDAC HARESH Last Admin: 07/18/17 06:07 Dose: 20 mg Discontinued Medications Diltiazem HCl (Diltiazem) 10 mg IVPUSH ONETIME ONE Stop: 07/14/17 12:28 Last Admin: 07/14/17 12:43 Dose: 10 mg Furosemide (Lasix) 20 mg IVPUSH ONETIME ONE Stop: 07/16/17 11:31 Last Admin: 07/16/17 11:52 Dose: 20 mg Furosemide (Lasix) 20 mg IVPUSH ONETIME ONE Stop: 07/17/17 12:01 Last Admin: 07/17/17 12:15 Dose: 20 mg Hydromorphone HCl (Dilaudid) 0.5 mg IVPUSH ONETIME ONE Stop: 07/14/17 13:09 Last Admin: 07/14/17 13:25 Dose: 0.5 mg Hydromorphone HCl (Dilaudid) 1 mg IVPUSH ONETIME ONE Stop: 07/14/17 15:13 Last Admin: 07/14/17 15:20 Dose: 1 mg Hydromorphone HCl (Dilaudid) 0.5 mg IVPUSH Q2H PRN PRN Reason: Pain (severe 7-10) Last Admin: 07/15/17 21:24 Dose: 0.5 mg Diltiazem HCl 125 mg/ Sodium (Chloride) 125 mls @ 10 mls/hr IV TITRATE HARESH; 10 MG/HR PRN Reason: Protocol Last Titration: 07/14/17 16:10 Dose: 0 mg/hr, 0 mls/hr Sodium Chloride (Normal Saline) 1,000 mls @ 125 mls/hr IV ASDIRECTED HARESH Last Admin: 07/15/17 21:58 Dose: 125 mls/hr Vancomycin HCl 2 gm/ Sodium (Chloride) 250 mls @ 250 mls/hr IV ONETIME ONE Stop: 07/14/17 16:52 Last Admin: 07/14/17 17:53 Dose: Not Given Vancomycin HCl 2 gm/ Sodium (Chloride) 500 mls @ 333 mls/hr IV ONETIME ONE Stop: 07/14/17 19:30 Last Admin: 07/14/17 18:48 Dose: 333 mls/hr Piperacillin Sod/Tazobactam (Sod 4.5 gm/ Sodium Chloride) 100 mls @ 25 mls/hr IV Q8H [facility] Last Admin: 07/16/17 01:32 Dose: 25 mls/hr Piperacillin Sod/Tazobactam (Sod 4.5 gm/ Sodium Chloride) 100 mls @ 200 mls/hr IV ONETIME ONE Stop: 07/14/17 18:29 Last Admin: 07/14/17 18:08 Dose: 200 mls/hr Vancomycin HCl 1 gm/ Sodium (Chloride) 250 mls @ 250 mls/hr IV Q24H [facility] Last Admin: 07/15/17 15:01 Dose: 250 mls/hr Vancomycin HCl 1 gm/ Sodium (Chloride) 250 mls @ 250 mls/hr IV Q12H [facility] Last Admin: 07/17/17 08:21 Dose: 250 mls/hr Piperacillin Sod/Tazobactam (Sod 4.5 gm/ Sodium Chloride) 100 mls @ 25 mls/hr IV Q8H [facility] Last Admin: 07/17/17 10:43 Dose: 25 mls/hr Magnesium Sulfate 2 gm/ Premix 50 mls @ 25 mls/hr IV ONETIME ONE Stop: 07/17/17 16:13 Last Admin: 07/17/17 15:08 Dose: 25 mls/hr Ampicillin Sodium/Sulbactam (Sodium 3 gm/ Sodium Chloride) 100 mls @ 200 mls/ hr IV Q6H [facility] Last Admin: 07/18/17 09:35 Dose: 200 mls/hr Ibuprofen (Motrin) 600 mg PO Q6H PRN PRN Reason: Pain (moderate 4-6) Last Admin: 07/16/17 08:03 Dose: 600 mg Levothyroxine Sodium (Levothroid) 137 mcg PO ACBREAKFAST [facility] Levothyroxine Sodium (Levothyroxine) Confirm Administered Dose 125 mcg .ROUTE .STK-MED ONE Stop: 07/16/17 05:16 Last Admin: 07/16/17 06:26 Dose: Not Given Metoprolol Tartrate (Lopressor) 25 mg PO Q8H [facility] Vancomycin HCl (Pharmacy To Dose - Vancomycin) 1 dose .XX ASDIRECTED PRN PRN Reason: RX to Dose - Exam Quality Assessment: DVT Prophylaxis General: Alert, Oriented, Cooperative, No Acute Distress HEENT: Pupils Equal, Pupils Reactive, EOMI Neck: Supple, Trachea Midline Lungs: Normal Respiratory Effort Cardiovascular: Regular Rate, Regular Rhythm GI/Abdominal Exam: Normal Bowel Sounds, Soft, Non-Tender, No Organomegaly, No Distention (Female) Exam: Deferred Back Exam: Normal Inspection Extremities: Normal Inspection Skin: Warm Neurological: No New Focal Deficit, Normal Gait, Normal Speech Psy/Mental Status: Alert, Normal Affect, Normal Mood - Problem List Review Problem List Initiated/Reviewed/Updated: Yes - My Orders Last 24 Hours: My Active Orders 07/18/17 10:45 Lisinopril [Prinivil] 20 mg PO BID 07/18/17 11:00 Furosemide [Lasix] 10 mg IVPUSH NOW ONE 07/18/17 11:02 traMADol [Ultram] 50 mg PO Q6H PRN 07/18/17 15:00 Ampicillin 1 gm Sodium Chloride 0.9% [Normal Saline] 100 ml IV Q8H - Plan Plan:: I/P: Acute: A-Fib with RVR--->resolved; PAF Started on BB 2D echo ordered. 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 -On Keflex earlier from PCP with no improvement; failed OP treatment. -Vanco/Zosyn stopped based on sensitivity; E faecalis is the organism sensitive to Ampicillin -PRN pain meds -Wound care per PT Chronic Type II DM -On metformin only -Reports she had A1C checked earlier this year and it was 6.1---> 7.2 -Diabetic nurse educator -BID blood glucose checks -Sliding scale insulin as infection may influence her blood sugars -ADA diet Morbid obesity--->BMI 57; 4'11" OYNAS but not on CPAP as hers is broken and she cannot obtain replacement until next calender year for insurance. Asthma Arthritis Chronic back pain - reports she was supposed to have surgery, however surgeon refused due to her obesity Plan: CM/SW for discharge planning PT/OT as above PT for wound changes Start Unasyn, will dc on Augmentin. DVT prophylaxis: Lovenox GI prophylaxis: Pepcid Other orders as indicated above Home medications as ordered Routine AM labs ########LOS>96 hours, slow response to therapy, has had episodes of PAF and has required IV ATB for diabetic foot. Code Status: Full code; Her PCP is Suzi Solares at [facility], although she was reportedly told to see Dr. Gorman for internal medicine.
[2017-07-18] MEDS ORDERED: Furosemide 20 MG/2 ML VIAL IVPUSH ONE (11:15)
[2017-07-18] MEDS ORDERED: hydrALAZINE 20 MG/ML SDV IVPUSH PRN (14:36)
[2017-07-18] MEDS: Ampicillin 1 GM in Sodium Chloride 0.9% 100 ML IV SCH ×2 (15:21→23:19)
[2017-07-18] MEDS: Enoxaparin 40 MG/0.4 ML Syringe SUBCUT SCH (17:53)
[2017-07-18] MEDS: Temazepam 15 MG Cap PO PRN (21:02)
[2017-07-18] MEDS: Rosuvastatin 10 MG Tab PO SCH (21:03)
[2017-07-19] MEDS: Acetaminophen/HYDROcodone 325-5 MG Tab PO PRN (03:40)
[2017-07-19] MEDS: Trospium 20 MG Tab PO SCH (05:33)
[2017-07-19] MEDS: Levothyroxine 112 MCG Tab PO SCH (05:33)
[2017-07-19] MEDS: Levothyroxine 25 MCG Tab PO SCH (05:33)
[2017-07-19] MEDS: Ampicillin 1 GM in Sodium Chloride 0.9% 100 ML IV SCH (06:36)
[2017-07-19] MEDS: Insulin Aspart 100 Units/ML 3 ML Pen SUBCUT SCH ×2 (07:36→12:06)
--- NOTE | 2017-07-19 07:59 | CR ---
Chest: Two views of the chest were obtained. Comparison: Prior chest x-ray of 07/14/17. Heart size and mediastinum are within normal limits. Questionable increased pulmonary vascular congestion from prior exam. Possible minimal right sided pleural effusion is noted. Heart size slightly more prominent than on prior exam. Surgical clips seen within the left axillary region. Impression: 1. Findings suspicious for early CHF as an interval change from previous exam. Diagnostic code #3 I mostly agree with preliminary report issued by [facility], please see above for further details ([facility] report finalized on 07/17/17, 12:03 PM Central Time)
[2017-07-19] MEDS: Furosemide 20 MG Tab PO SCH (08:06)
[2017-07-19] MEDS: Metoprolol Tartrate 25 MG Tab PO SCH (08:07)
[2017-07-19] MEDS: Lisinopril 20 MG Tab PO SCH (08:07)
--- NOTE | 2017-07-19 10:17 | CR ---
Chest: Portable view of the chest was obtained. Comparison: No prior study. Heart size and mediastinum are normal. Lungs are clear. Surgical clips are seen within the left axillary region. Bony structures are grossly intact. Impression: 1. Nothing acute is identified on portable chest x-ray. Diagnostic code #1
--- NOTE | 2017-07-19 12:03 | PCM.DCSUM1 ---
Discharge Summary - Hospital Course Free Text/Narrative:: Nissa Roach is a 66 yo female who presented to our ED today from Dr. Gorman's office. She went in there to have her left leg looked at, as she has had pain, swelling, and drainage. While there she was found to be in A. fib with RVR. She is a history of this, denies any chest pain, and do not really she was in an irregular rhythm. She hasn't short of breath at times. Denies nausea, vomiting, abdominal pain. She does report pain in her left leg. She has had edema for some time and was prescribed Lasix for this. She reports recently her left leg opened up and began weeping. This since become infected. She was reportedly on Keflex for one week and denies any improvement. She has type II DM and is on metformin, however no insulin. Labs were obtained: 30 mL slightly elevated left 0.15, hemoglobin is low at 10.8. Hematocrit low 33.1. She was normocytic. Platelet count 357,000. Neutrophils are elevated at 75.7%. Sodium was normal at 137. Potassium 4.2. Chloride 103. Anion gap is elevated at 15.2. BUN on the high end of normal at 17. Creatinine 0.9. EGFR greater than 60. Glucose 159. Hemoglobin A1c 7.20. Calcium 9.4. Total bilirubin 0.3. AST is 19, ALT 26, alkaline phosphatase 136. Troponin is negative with less than 0.017. ProBNP is 608. Albumin is low at 3.3. She was given 10 mg IVP of Cardizem and started on a Cardizem drip. Shortly after starting the Cardizem drip and her blood pressure dropped and the drip was stopped. She also complaining of leg pain and was given Dilaudid. EKG was obtained showing A. fib with no acute changes. This is per ED provider interpretation. CXR also reportedly looked good. The patient self converted back to normal sinus rhythm before being admitted. Blood cultures were obtained. She carries a history of asthma, YONAS although not on a CPAP as hers broke and she is waiting for a new one once insurance allows next year, arthritis, type II DM, morbid obesity. She is a former smoker. She is a full code. Her PCP is Sriram Solares, nurse practitioner at [facility]. She reports she had been instructed to see Dr. Gorman for internal medicine. Course of hospital stay: Wound culture grew enterococcus fecalis sensitive to ampicillin. BC were negative. UA was also positive but UC negative. Whe was maintained in NSR after converting as above. She was started on metoprolol BID along with ASA. She will be discharged with 48 hour holter monitor with results to PCP. PT/OT was consulted, PT for wound care to left lower leg wound; she will cont with OP PT post discharge for wound care. She will be discharged on ampicillin PO x 5 more days. She is intr to f/up with PCP, Dr. Gorman within one week of discharge. - Discharge Data Discharge Date: 07/19/17 (admit date 07/14/17) Discharge Disposition: Home, Self-Care 01 Condition: Fair - Discharge Diagnosis/Problem(s) (1) Atrial fibrillation with RVR SNOMED Code(s): 436533184132108 ICD Code: I48.91 - UNSPECIFIED ATRIAL FIBRILLATION Status: Resolved Priority: High Current Visit: Yes Problem Details: Paroxysmal (2) Cellulitis of left leg SNOMED Code(s): 675921338 ICD Code: L03.116 - CELLULITIS OF LEFT LOWER LIMB Status: Acute Priority : High Current Visit: Yes (3) YONAS (obstructive sleep apnea) SNOMED Code(s): 80374250 ICD Code: G47.33 - OBSTRUCTIVE SLEEP APNEA (ADULT) (PEDIATRIC) Status: Chronic Priority: Medium Current Visit: Yes (4) Asthma SNOMED Code(s): 287430646 ICD Code: J45.909 - UNSPECIFIED ASTHMA, UNCOMPLICATED Status: Chronic Priority: Low Current Visit: Yes Qualifiers: Asthma severity: unspecified severity Asthma persistence: unspecified Asthma complication type: unspecified Qualified Code(s): J45.909 - Unspecified asthma, uncomplicated (5) Type II diabetes mellitus SNOMED Code(s): 05897541 ICD Code: E11.9 - TYPE 2 DIABETES MELLITUS WITHOUT COMPLICATIONS Status: Chronic Priority: Medium Current Visit: Yes Qualifiers: Diabetes mellitus complication status: with skin complications Diabetes mellitus complication detail: with other skin ulcer Diabetes mellitus continuous churn buttermaker insulin use: without penitentiary use Qualified Code(s): E11.622 - Type 2 diabetes mellitus with other skin ulcer (6) Morbid obesity with BMI of 50.0-59.9, adult SNOMED Code(s): 180741323 ICD Code: E66.01 - MORBID (SEVERE) OBESITY DUE TO EXCESS CALORIES; Z68.43 - BODY MASS INDEX (BMI) 50-59.9 , ADULT Status: Chronic Priority: Medium Current Visit: Yes - Patient Summary/Data Operative Procedure(s) Performed: None Complications: None Consults: Consultations 07/14/17 17:04 Consult to Case Management [CONS] Routine Consult to Ecdis N Navigation Operator [CONS] Routine Consult to Manager Housekeeping [CONS] Routine OT Evaluation and Treatment [CONS] Routine PT Evaluation and Treatment [CONS] Routine 07/14/17 17:12 Consult to Diabetic Nurse Specialist [CONS] Routine 07/15/17 10:15 Consult to Physician [CONS] Routine Labs Pending at D/C: None Recommended Follow-up Testing/Procedures: Patient DC instructions: Please have patient follow up with religious educator Marguerite Mac or Vandana Love as an outpatient at [facility] Please check Blood sugars 4 times a day and as needed (copy of orders given to patient to take to pharmacy for meter); bring record with to all appointments Outpatient Physical Therapy for wound care: At [facility] orders faxed to [phone] Holter monitor at discharge with results to PCP, Dr. Gorman Nursing: Please offer the t-dap if patient would like after finishing the screening. Follow up with PCP, Dr. Gorman within one week of discharge. Planned Operative Procedure(s) after DC: None Hospital Course: As above - Patient Instructions Diet: Heart Healthy Diet, Diabetic Diet Activity: As Tolerated Driving: Do Not Drive Showering/Bathing: May Shower Notify Provider of: Fever, Increased Pain, Swelling and Redness, Drainage, Nausea and/or Vomiting - Discharge Plan Prescriptions/Med Rec: Metoprolol Tartrate [Lopressor] 25 mg PO Q12HR #60 tablet Ampicillin [Principen] 250 mg PO Q6H #20 cap Aspirin 81 mg PO BEDTIME #30 tab.chew Lisinopril [Prinivil] 20 mg PO BID #60 tablet Home Medications: Home Meds Docusate Sodium [Colace] 100 mg PO BID 07/14/17 [History] Furosemide [Lasix] 20 mg PO DAILY 07/14/17 [History] Ibuprofen 600 mg PO TID PRN 07/14/17 [History] Levothyroxine [Levothroid] 137 mcg PO DAILY 07/14/17 [History] Potassium Chloride [Klor-Con 10] 10 meq PO DAILY 07/14/17 [History] Solifenacin [Vesicare] 5 mg PO DAILY 07/14/17 [History] atorvaSTATin [Lipitor] 40 mg PO BEDTIME 07/14/17 [History] Hydrocodone/Acetaminophen [Hydrocodon-Acetaminophen 5-325] 5 - 325 mg PO QID PRN 07/15/17 [History] Omeprazole 40 mg PO BEDTIME 07/15/17 [History] Solifenacin [Vesicare] 5 mg PO DAILY 07/15/17 [History] atorvaSTATin [Lipitor] 40 mg PO BEDTIME 07/15/17 [History] Ampicillin [Principen] 250 mg PO Q6H #20 cap 07/19/17 [Rx] Aspirin 81 mg PO BEDTIME #30 tab.chew 07/19/17 [Rx] Lisinopril [Prinivil] 20 mg PO BID #60 tablet 07/19/17 [Rx] Metoprolol Tartrate [Lopressor] 25 mg PO Q12HR #60 tablet 07/19/17 [Rx] metFORMIN [Glucophage] 1,000 mg PO BIDMEALS #60 07/19/17 [Rx] Patient Handouts: Type 2 Diabetes Mellitus, Adult, Diabetes and Foot Care, Cellulitis, Adult, Diabetes and Sick Day Management, Hyperglycemia, [id number] , Sleep Apnea, [id number], Atrial Fibrillation, [id number] Referrals: Marguerite Davis [Other] - 07/30/17 1:45 pm (PLEASE arrive by 1:30 PM) Suzi Solares NP [Primary Care Provider] - Gabriel Gorman MD [Physician] - 07/26/17 2:30 pm - Discharge Summary/Plan Comment DC Time >30 min.: Yes (45 min) - General Info Date of Service: 07/19/17 Admission Dx/Problem (Free Text: Admission Diagnosis/Problem Admission Diagnosis/Problem Atrial fibrillation, currently in sinus rhythm Cellulitis with lt leg wound, DM type 2 Functional Status: Reports: Pain Controlled, Tolerating Diet, Ambulating, Urinating. Denies: New Symptoms - Review of Systems General: Reports: Weakness (generalized but improved). Denies: Fever HEENT: Reports: No Symptoms Pulmonary: Reports: No Symptoms. Denies: Shortness of Breath, Cough Cardiovascular: Reports: No Symptoms. Denies: Chest Pain, Palpitations, Dyspnea on Exertion Gastrointestinal: Reports: No Symptoms. Denies: Abdominal Pain, Nausea, Vomiting Genitourinary: Reports: No Symptoms Musculoskeletal: Reports: No Symptoms Skin: Reports: Other (dressing to lt LE, CDI) Neurological: Reports: No Symptoms - Patient Data Vitals - Most Recent: Last Vital Signs Temp 98.4 F 07/19/17 08:09 Pulse 73 07/19/17 08:09 Resp 20 07/19/17 08:09 BP 157/58 H 07/19/17 08:09 Pulse Ox 97 07/19/17 08:09 Weight - Most Recent: 268 lb 8 oz I&O - Last 24 hours: Intake & Output 07/18/17 07/19/17 07/19/17 22:59 06:59 14:59 Intake Total 1220 400 445 Output Total 580 300 350 Balance 640 100 95 Lab Results - Last 24 hrs: Laboratory Results - last 24 hr 07/18/17 07/18/17 07/19/17 Range/Units 16:30 20:56 07:31 POC Glucose 158 H 142 H 119 H (80-115) mg/dL Med Orders - Current: Current Medications Hydrocodone Bitart/Acetaminophen ([place] 325-5 Mg) 1 tab PO Q4H PRN PRN Reason: Pain (moderate 4-6) Last Admin: 07/19/17 03:40 Dose: 1 tab Albuterol/Ipratropium (Duoneb 3.0-0.5 Mg/3 Ml) 3 ml NEB Q4H PRN PRN Reason: Shortness Of Breath/wheezing Last Admin: 07/16/17 10:19 Dose: 3 ml Bisacodyl (Dulcolax) 5 mg PO DAILY PRN PRN Reason: Constipation Last Admin: 07/17/17 08:16 Dose: 5 mg Dextrose/Water (Dextrose 50% In Water) 50 ml IVPUSH ASDIRECTED PRN PRN Reason: Hypoglycemia Docusate Sodium (Colace) 100 mg PO BID PRN PRN Reason: Constipation Last Admin: 07/16/17 10:29 Dose: 100 mg Enoxaparin Sodium (Lovenox) 40 mg SUBCUT Q24H HARESH Last Admin: 07/18/17 17:53 Dose: 40 mg Furosemide (Lasix) 20 mg PO DAILY [facility] Last Admin: 07/19/17 08:06 Dose: 20 mg Hydralazine HCl (Apresoline) 20 mg IVPUSH Q6H PRN PRN Reason: Hypertension Hydromorphone HCl (Dilaudid) 0.5 mg IVPUSH Q2H PRN PRN Reason: Pain (severe 7-10) Last Admin: 07/17/17 23:39 Dose: 0.5 mg Ampicillin Sodium 1 gm/ Sodium (Chloride) 100 mls @ 200 mls/hr IV Q8H [facility] Last Admin: 07/19/17 06:36 Dose: 200 mls/hr Insulin Aspart (Novolog) 0 unit SUBCUT QIDACANDBED [facility] PRN Reason: Protocol Last Admin: 07/19/17 07:36 Dose: Not Given Levothyroxine Sodium (Levothyroxine) 112 mcg PO DAILY@0600 [facility] Last Admin: 07/19/17 05:33 Dose: 112 mcg Levothyroxine Sodium (Levothyroxine) 25 mcg PO DAILY@0600 [facility] Last Admin: 07/19/17 05:33 Dose: 25 mcg Lisinopril (Prinivil) 20 mg PO BID [facility] Last Admin: 07/19/17 08:07 Dose: 20 mg Metoprolol Tartrate (Lopressor) 25 mg PO Q12HR [facility] Last Admin: 07/19/17 08:07 Dose: 25 mg Ondansetron HCl (Zofran Odt) 4 mg PO Q6H PRN PRN Reason: nausea, able to take PO Last Admin: 07/18/17 01:00 Dose: 4 mg Ondansetron HCl (Zofran) 4 mg IV Q6H PRN PRN Reason: Nausea/Vomiting Last Admin: 07/14/17 17:34 Dose: 4 mg Polyethylene Glycol (Miralax) 17 gm PO DAILY PRN PRN Reason: Constipation Last Admin: 07/17/17 08:12 Dose: 17 gm Rosuvastatin Calcium (Crestor) 10 mg PO BEDTIME [facility] Last Admin: 07/18/17 21:03 Dose: 10 mg Senna/Docusate Sodium (Senna Plus) 1 tab PO BID PRN PRN Reason: Constipation Last Admin: 07/16/17 20:21 Dose: 1 tab Sodium Chloride (Saline Flush) 10 ml FLUSH ASDIRECTED PRN PRN Reason: Keep Vein Open Last Admin: 07/14/17 12:44 Dose: 10 ml Temazepam (Restoril) 15 mg PO BEDTIME PRN PRN Reason: Sleep Last Admin: 07/18/17 21:02 Dose: 15 mg Tramadol HCl (Ultram) 50 mg PO Q6H PRN PRN Reason: Pain Trospium (Sanctura) 20 mg PO BIDAC HARESH Last Admin: 07/19/17 05:33 Dose: 20 mg Discontinued Medications Diltiazem HCl (Diltiazem) 10 mg IVPUSH ONETIME ONE Stop: 07/14/17 12:28 Last Admin: 07/14/17 12:43 Dose: 10 mg Furosemide (Lasix) 20 mg IVPUSH ONETIME ONE Stop: 07/16/17 11:31 Last Admin: 07/16/17 11:52 Dose: 20 mg Furosemide (Lasix) 20 mg IVPUSH ONETIME ONE Stop: 07/17/17 12:01 Last Admin: 07/17/17 12:15 Dose: 20 mg Furosemide (Lasix) 10 mg IVPUSH ONETIME ONE Stop: 07/18/17 11:16 Last Admin: 07/18/17 11:58 Dose: 10 mg Hydromorphone HCl (Dilaudid) 0.5 mg IVPUSH ONETIME ONE Stop: 07/14/17 13:09 Last Admin: 07/14/17 13:25 Dose: 0.5 mg Hydromorphone HCl (Dilaudid) 1 mg IVPUSH ONETIME ONE Stop: 07/14/17 15:13 Last Admin: 07/14/17 15:20 Dose: 1 mg Hydromorphone HCl (Dilaudid) 0.5 mg IVPUSH Q2H PRN PRN Reason: Pain (severe 7-10) Last Admin: 07/15/17 21:24 Dose: 0.5 mg Diltiazem HCl 125 mg/ Sodium (Chloride) 125 mls @ 10 mls/hr IV TITRATE HARESH; 10 MG/HR PRN Reason: Protocol Last Titration: 07/14/17 16:10 Dose: 0 mg/hr, 0 mls/hr Sodium Chloride (Normal Saline) 1,000 mls @ 125 mls/hr IV ASDIRECTED HARESH Last Admin: 07/15/17 21:58 Dose: 125 mls/hr Vancomycin HCl 2 gm/ Sodium (Chloride) 250 mls @ 250 mls/hr IV ONETIME ONE Stop: 07/14/17 16:52 Last Admin: 07/14/17 17:53 Dose: Not Given Vancomycin HCl 2 gm/ Sodium (Chloride) 500 mls @ 333 mls/hr IV ONETIME ONE Stop: 07/14/17 19:30 Last Admin: 07/14/17 18:48 Dose: 333 mls/hr Piperacillin Sod/Tazobactam (Sod 4.5 gm/ Sodium Chloride) 100 mls @ 25 mls/hr IV Q8H [facility] Last Admin: 07/16/17 01:32 Dose: 25 mls/hr Piperacillin Sod/Tazobactam (Sod 4.5 gm/ Sodium Chloride) 100 mls @ 200 mls/hr IV ONETIME ONE Stop: 07/14/17 18:29 Last Admin: 07/14/17 18:08 Dose: 200 mls/hr Vancomycin HCl 1 gm/ Sodium (Chloride) 250 mls @ 250 mls/hr IV Q24H [facility] Last Admin: 07/15/17 15:01 Dose: 250 mls/hr Vancomycin HCl 1 gm/ Sodium (Chloride) 250 mls @ 250 mls/hr IV Q12H [facility] Last Admin: 07/17/17 08:21 Dose: 250 mls/hr Piperacillin Sod/Tazobactam (Sod 4.5 gm/ Sodium Chloride) 100 mls @ 25 mls/hr IV Q8H [facility] Last Admin: 07/17/17 10:43 Dose: 25 mls/hr Magnesium Sulfate 2 gm/ Premix 50 mls @ 25 mls/hr IV ONETIME ONE Stop: 07/17/17 16:13 Last Admin: 07/17/17 15:08 Dose: 25 mls/hr Ampicillin Sodium/Sulbactam (Sodium 3 gm/ Sodium Chloride) 100 mls @ 200 mls/ hr IV Q6H [facility] Last Admin: 07/18/17 09:35 Dose: 200 mls/hr Ibuprofen (Motrin) 600 mg PO Q6H PRN PRN Reason: Pain (moderate 4-6) Last Admin: 07/16/17 08:03 Dose: 600 mg Levothyroxine Sodium (Levothroid) 137 mcg PO ACBREAKFAST [facility] Levothyroxine Sodium (Levothyroxine) Confirm Administered Dose 125 mcg .ROUTE .STK-MED ONE Stop: 07/16/17 05:16 Last Admin: 07/16/17 06:26 Dose: Not Given Metoprolol Tartrate (Lopressor) 25 mg PO Q8H [facility] Vancomycin HCl (Pharmacy To Dose - Vancomycin) 1 dose .XX ASDIRECTED PRN PRN Reason: RX to Dose - Exam Quality Assessment: Reports: DVT Prophylaxis General: Reports: Alert, Oriented, Cooperative, No Acute Distress HEENT: Reports: Pupils Equal, EOMI, Mucous Membr. Moist/[place] Neck: Reports: Supple Lungs: Reports: Clear to Auscultation, Normal Respiratory Effort, Decreased Breath Sounds (bases) Cardiovascular: Reports: Regular Rate, Regular Rhythm GI/Abdominal Exam: Normal Bowel Sounds, Soft, Non-Tender (Female) Exam: Deferred Rectal (Female) Exam: Deferred Extremities: Other (venous stasis changes present; dressing to lt LE CDI) Neurological: Reports: No New Focal Deficit Psy/Mental Status: Reports: Alert, Normal Affect, Normal Mood *Q Meaningful Use (DIS) - VTE *Q VTE Criteria *Q: - Stroke *Q Stroke Criteria *Q: - AMI *Q AMI Criteria *Q:
[2017-07-19] MEDS ORDERED: Pneumococcal 13-Valent Conjugate Vaccine 0.5 ML Syringe IM ONE (12:50)
[2017-07-19] MEDS ORDERED: Ibuprofen 600 MG Tab PO ONE (14:26)
== END 2017-07-19 14:55 | disposition home or self-care (01) | DRG 309 ==
LOC: JD.ED 12:09 → JD.ICU 16:20
PROVIDERS: ADMIT Internal Medicine Cardiovascular Disease; ATTEND Internal Medicine Cardiovascular Disease
PROC: 3E0234Z Introduction of Serum, Toxoid and Vaccine into Muscle, Percutaneous Approach (ICD-10-PCS; principal; 2017-07-19)
DX: I48.0 Paroxysmal atrial fibrillation (principal); L03.116 Cellulitis of left lower limb; Z68.43 Body mass index [BMI] 50.0-59.9, adult; B95.2 Enterococcus as the cause of diseases classified elsewhere; E11.620 Type 2 diabetes mellitus with diabetic dermatitis; G47.33 Obstructive sleep apnea (adult) (pediatric); M19.90 Unspecified osteoarthritis, unspecified site; Z79.84 Long term (current) use of oral hypoglycemic drugs; E66.01 Morbid (severe) obesity due to excess calories; Z87.891 Personal history of nicotine dependence; Z91.010 Allergy to peanuts; Z88.2 Allergy status to sulfonamides; Z91.09 Other allergy status, other than to drugs and biological substances; Z79.899 Other long term (current) drug therapy; C50.919 Malignant neoplasm of unspecified site of unspecified female breast; J45.909 Unspecified asthma, uncomplicated; G89.29 Other chronic pain; M54.9 Dorsalgia, unspecified; Z23 Encounter for immunization
CPT/HCPCS: 36415; 71010; 71010-26; 71020; 71020-26; 80048; 80053; 80061; 81001; 82728; 82962; 83036; 83735; 83880; 84443; 84484; 85018; 85025; 86140; 87040; 87070; 87186; 90670; 93005; 94640; 96361; 96365; 96375; 96376; 97162-GP; 97166-GO; 97530-GO; 97530-GP; 97597-GP; 99284; 99285-25; A9270-GY; G0009; J0290; J0295; J1170; J1650; J1815-GY; J2405; J2543; J3370; J3475; J3490; J7030; J7040; J7050